=== PATIENT | female | born 1955 | race Caucasian/White ===

== ENCOUNTER 2019-10-07 14:50 | Outpatient (CLI) | payer BC, SELFPAY ==
[2019-10-07 15:05] LABS: Basophils Percent Auto 0.8 % (0.2-1.2); Eosinophils Absolute Auto 0.1 K/mm3 (0-0.3); Eosinophils Percent Auto 2.1 % (0-4.4); Hematocrit 41.5 % (37.0-47.0); Hemoglobin 13.5 g/dL (12.0-15.0); Immature Granulocyte Absolute 0.01 K/mm3 (0.00-0.031); Immature Granulocyte Percent A 0.3 % (0-0.5); Lymphocytes Absolute Auto 1.19 K/mm3 (0.9-3.2); Lymphocytes Percent Auto 31.4 % (18.3-44.2); Mean Corpuscular HGB Conc 32.5 g/dl (32-36); Mean Corpuscular Hemoglobin 32.1 pg (26-34); Mean Corpuscular Volume 98.6 fl (80-100); Mean Platelet Volume 8.5 fl (7.4-10.4); Monocytes Absolute Auto 0.5 K/mm3 (0.1-0.6); Monocytes Percent Auto 14.2 % (2.6-8.5); Neutrophils Absolute Auto 1.9 K/mm3 (1.3-6.7); Neutrophils Percent Auto 51.2 % (45.5-73.1); Platelet Count Result 175 k/mm3 (150-375); Red Blood Count 4.21 M/mm3 (4.2-5.4); Red Cell Distribution Width 11.5 % (11.5-14.5); White Blood Count 3.8 K/mm3 (4.5-10.0)
[2019-10-07 16:29] LABS: Add Urine Microscopic? NO; Appearance Urine Clear (Clear); Bilirubin Urine Negative (Negative); Blood Urine Negative (Negative); Color Urine Colorless (Yellow); Glucose Urine UA Negative (Negative); Ketones Urine Negative (Negative); Leukocyte Esterase Ur Negative LEU/UL (Negative); Nitrate Urine Negative (Negative); Protein Urine Negative (Negative); Specific Grav Ur 1.005 (1.001-1.035); Urobilinogen Urine Negative mg/dL (<2.0)
[2019-10-07 16:36] LABS: Alanine Aminotransferase 28 U/L (4-35); Albumin Level 4.3 g/dL (3.5-5.1); Alkaline Phosphatase 44 U/L (38-126); Aspartate Amino Transferase 32 U/L (14-36); Bilirubin,Total 0.2 mg/dL (0.2-1.3); Blood Urea Nitrogen 15 mg/dL (7-17); Calcium 9.9 mg/dL (8.4-10.2); Carbon Dioxide 33 mmol/L (22-30); Chloride 98 mmol/L (98-107); Estimated Glomerular Filt Rate > 60; Glucose 90 mg/dL (65-105); Potassium 3.9 mmol/L (3.4-5.0); Sodium 136 mmol/L (137-145)
[2019-10-07 16:51] LABS: Erythrocyte Sedimentation Rate 24 mm/hr (0-20)
== END 2019-10-07 14:51 | disposition home or self-care (01) ==
LOC: ANHLAB 14:51
PROVIDERS: PCP Family Medicine; Visit Provider Internal Medicine
DX: M19.90 Unspecified osteoarthritis, unspecified site (principal); R76.8 Other specified abnormal immunological findings in serum
CPT/HCPCS: 36415; 80053; 81003; 85025; 85652

== ENCOUNTER → 2020-02-21 13:17 | Outpatient (CLI) | payer BC, SELFPAY ==
--- NOTE | ~2020-02-21 | MM_ITS ---
EXAMINATION: MM screening [facility] w [facility] HISTORY: Screening mammogram TECHNIQUE: Craniocaudal and mediolateral oblique 3-D tomosynthesis images were obtained and synthetic 2-D images were generated. CAD analysis was submitted and interpreted. COMPARISON: No prior mammogram is available for comparison at this institution. BREAST PARENCHYMAL COMPOSITION: There are scattered areas of fibroglandular density. FINDINGS: There is no evidence of suspicious mass, calcification, or architectural distortion to sugg est malignancy in either breast. There has been no suspicious interval change. IMPRESSION: 1. No mammographic evidence of malignancy. 2. Recommend routine screening mammography in one year. BIRADS Category 1: Negative RECOMMENDATION: Routine mammographic screening Reviewed, dictated and finalized at location A.
== END ==
PROVIDERS: PCP Family Medicine; Visit Provider Family Medicine
DX: Z12.31 Encounter for screening mammogram for malignant neoplasm of breast (principal)
CPT/HCPCS: 77063; 77067

== ENCOUNTER → 2021-03-15 11:26 | Outpatient (CLI) | payer BC, SELFPAY ==
--- NOTE | ~2021-03-15 | US_ITS ---
EXAMINATION: US thyroid DATE: 03/15/2021 12:03 INDICATION: Thyroid nodule. TECHNIQUE: Multiple ultrasound images of the thyroid were obtained. COMPARISON: None. FINDINGS: The right thyroid lobe measures 3.6 x 1.7 x 1.3 cm. The left thyroid lobe measures 3.4 x 1.2 x 1.4 c m. In the right thyroid lobe, there is a 3 mm nodule. IMPRESSION: 1. Small thyroid nodule, likely not clinically significant. No follow-up is needed. Reviewed, dictated and finalized at location A. IMPRESSION: 1. Small thyroid nodule, likely not clinically significant. No follow-up is nee ded.
--- NOTE | ~2021-03-15 | MM_ITS ---
EXAMINATION: MM screening [facility] BI w [facility] HISTORY: Screening mammogram TECHNIQUE: Craniocaudal and mediolateral oblique 3-D tomosynthesis images were obtained and synthetic 2-D images were generated. CAD analysis was submitted and interpreted. COMPARISON: 02/21/2020, 12/24/2018, 12/04/2017 bilateral digital screening mammogram examinations BREAST PARENCHYMAL COMPOSITION: There are scattered areas of fibroglandular density. FINDINGS: There is no evidence of suspicious mass, calcification, or architectural distortion to sugg est malignancy in either breast. There has been no suspicious interval change. IMPRESSION: 1. No mammographic evidence of malignancy. 2. Recommend routine screening mammography in one year. BI-RADS Category 1: Negative Reviewed, dictated and finalized at location A.
== END ==
PROVIDERS: PCP Family Medicine; Visit Provider Nurse Practitioner Family
DX: Z12.31 Encounter for screening mammogram for malignant neoplasm of breast (principal); E04.1 Nontoxic single thyroid nodule
CPT/HCPCS: 76536; 77063; 77067

== ENCOUNTER → 2021-05-16 10:13 | Outpatient (CLI) | payer BC, SELFPAY ==
--- NOTE | ~2021-05-16 | DEXA_ITS ---
Bone Density Report Name: Maryellen Cruz Age: 66 Sex: Female Ethnicity: White Date of : 1955 Indication: osteopenia; monitoring treatment; parental hip fracture; height loss; prior fracture; postmenopausal Referring Provider: Shiloh Macedo Study: Bone densitometry was performed. Exam Date: May 16, 2021 Accession number: [id number] Bone Density: Region BMD T-score Z-score Classification AP Spine (L1-L4) 0.849 -1.8 -0.1 Osteopenia Femoral Neck (Left) 0.504 -3.1 -1.6 Osteoporosis Total Hip (Left) 0.759 -1.5 -0.3 Osteopenia Femoral Neck (Right) 0.566 -2.5 -1.1 Osteoporosis Total Hip (Right) 0.737 -1.7 -0.5 Osteopenia Total Hip Mean 0.748 -1.6 -0.4 Osteopenia World Health Organization criteria for BMD impression classify patients as: Normal (T-score at or above -1.0), Osteopenia (T-score between -1.0 and -2.5), or Osteoporosis (T-score at or below -2.5). 10-year Fracture Risk: FRAX not reported because: Some T-score for Spine Total or Hip Total or Femoral Neck at or below -2.5 Treated for osteoporosis Previous Exams: Region Exam Age BMD T-score BMD Change BMD Change Date g/cm2 vs Baseline vs Previous AP Spine(L1-L4) 05/16/2021 66 0.849 -1.8 0.063* 0.011 12/07/2018 63 0.838 -1.9 0.051* -0.040* 09/05/2016 61 0.877 -1.5 0.091* 0.033* 08/22/2014 59 0.844 -1.8 0.058* 0.058* 08/31/2011 56 0.786 -2.4 Total Hip(Left) 05/16/2021 66 0.759 -1.5 0.057* 0.007 12/07/2018 63 0.752 -1.6 0.051* 0.016 09/05/2016 61 0.736 -1.7 0.034* 0.000 08/22/2014 59 0.736 -1.7 0.034* 0.034* 08/31/2011 56 0.702 -2.0 Total Hip(Right) 05/16/2021 66 0.737 -1.7 0.077* 0.022 12/07/2018 63 0.715 -1.9 0.055* -0.014 09/05/2016 61 0.729 -1.7 0.069* 0.022 08/22/2014 59 0.707 -1.9 0.047* 0.047* 08/31/2011 56 0.660 -2.3 *Denotes significance at 95% confidence level, LSC for AP Spine = 0.022 g/cm2, LSC for Total Hip = 0.027 g/cm2 Clinical Information Provided by Patient: Has had a low trauma fracture Parent has had a hip fracture Is being treated for osteoporosis Has used the following medications: Boniva (i.e. ibandronate), Vitamin D, Calcium Patient maximum height was 61 Menopause Age: 52 Onset of menses at age 15 Number of children 2
== END ==
PROVIDERS: Visit Provider Nurse Practitioner Family
DX: M81.0 Age-related osteoporosis without current pathological fracture (principal); M85.88 Other specified disorders of bone density and structure, other site; M85.851 Other specified disorders of bone density and structure, right thigh; M85.852 Other specified disorders of bone density and structure, left thigh
CPT/HCPCS: 77080

== ENCOUNTER → 2022-04-18 12:02 | Outpatient (CLI) | payer BC, SELFPAY ==
--- NOTE | ~2022-04-18 | MM_ITS ---
EXAMINATION: MM screening [facility] BI w arya HISTORY: Screening TECHNIQUE: Craniocaudal and mediolateral oblique 3-D tomosynthesis images were obtained and synthetic 2-D images were generated. CAD analysis was submitted and interpreted. COMPARISON: Comparison to multiple prior studies sequentially, with oldest reviewed study dated 09/2018. BREAST PARENCHYMAL COMPOSITION: There are scattered areas of fibroglandular density. FINDINGS: There is no evidence of suspicious mass, calcification, or architectural distortion to sugg est malignancy in either breast. There has been no suspicious interval change. IMPRESSION: 1. No mammographic evidence of malignancy. 2. Recommend routine screening mammography in one year. BI-RADS Category 1: Negative Reviewed, dictated and finalized at location A.
== END ==
PROVIDERS: PCP Family Medicine; Visit Provider Nurse Practitioner Family
DX: Z12.31 Encounter for screening mammogram for malignant neoplasm of breast (principal)
CPT/HCPCS: 77063; 77067

== ENCOUNTER 2023-08-19 10:56 | Outpatient (CLI) | payer BC, SELFPAY ==
--- NOTE | ~2023-08-19 | MM_ITS ---
EXAMINATION: MM screening [facility] BI w arya HISTORY: Screening mammogram TECHNIQUE: Craniocaudal and mediolateral oblique 3-D tomosynthesis images were obtained and synthetic 2-D images were generated. CAD analysis was submitted and interpreted. COMPARISON: 04/18/2022, 03/15/2021, 02/23/2020 BREAST PARENCHYMAL COMPOSITION: There are scattered areas of fibroglandular density. FINDINGS: No suspicious mass, calcification, or architectural distortion are identified in either luiz ast to suggest malignancy. There has been no suspicious interval change. IMPRESSION: 1. No mammographic evidence of malignancy. 2. Recommend routine screening mammography in one year. BI-RADS Category 1: Negative Reviewed, dictated and finalized at location A. AND AND CONTROL OFFICER
--- NOTE | ~2023-08-19 | DEXA_ITS ---
Bone Density Report Name: FRANCIS ALFARO Age: 68 Sex: Female Ethnicity: White Date of : 1955 Indication: osteopenia; monitoring treatment; parental hip fracture; height loss; prior fracture; Referring Provider: Rere Guerrero Study: Bone densitometry was performed. Exam Date: August 19, 2023 Accession number: [id number] Bone Density: Region BMD T-score Z-score Classification AP Spine (L1-L4) 0.860 -1.7 0.2 Osteopenia Femoral Neck (Left) 0.544 -2.8 -1.2 Osteoporosis Total Hip (Left) 0.785 -1.3 0.0 Osteopenia Femoral Neck (Right) 0.560 -2.6 -1.0 Osteoporosis Total Hip (Right) 0.709 -1.9 -0.6 Osteopenia Total Hip Mean 0.747 -1.6 -0.3 Osteopenia World Health Organization criteria for BMD impression classify patients as: Normal (T-score at or above -1.0), Osteopenia (T-score between -1.0 and -2.5), or Osteoporosis (T-score at or below -2.5). 10-year Fracture Risk: FRAX not reported because: Some T-score for Spine Total or Hip Total or Femoral Neck at or below -2.5 Treated for osteoporosis Previous Exams: Region Exam Age BMD T-score BMD Change BMD Change Date g/cm2 vs Baseline vs Previous AP Spine(L1-L4) 08/19/2023 68 0.860 -1.7 0.074* 0.011 05/16/2021 66 0.849 -1.8 0.063* 0.011 12/07/2018 63 0.838 -1.9 0.051* -0.040* 09/05/2016 61 0.877 -1.5 0.091* 0.033* 08/22/2014 59 0.844 -1.8 0.058* 0.058* 08/31/2011 56 0.786 -2.4 Total Hip(Left) 08/19/2023 68 0.785 -1.3 0.083* 0.026 05/16/2021 66 0.759 -1.5 0.057* 0.007 12/07/2018 63 0.752 -1.6 0.051* 0.016 09/05/2016 61 0.736 -1.7 0.034* 0.000 08/22/2014 59 0.736 -1.7 0.034* 0.034* 08/31/2011 56 0.702 -2.0 Total Hip(Right) 08/19/2023 68 0.709 -1.9 0.049* -0.028* 05/16/2021 66 0.737 -1.7 0.077* 0.022 12/07/2018 63 0.715 -1.9 0.055* -0.014 09/05/2016 61 0.729 -1.7 0.069* 0.022 08/22/2014 59 0.707 -1.9 0.047* 0.047* 08/31/2011 56 0.660 -2.3 *Denotes significance at 95% confidence level, LSC for AP Spine = 0.022 g/cm2, LSC for Total Hip = 0.027 g/cm2 Clinical Information Provided by Patient: Has had a low trauma fracture Parent has had a hip fracture Is being treated for osteoporosis Has used the followi
== END 2023-08-19 10:57 ==
LOC: MICIMG 10:57
PROVIDERS: PCP Nurse Practitioner Family; Visit Provider Nurse Practitioner Family
DX: Z12.31 Encounter for screening mammogram for malignant neoplasm of breast (principal); M81.0 Age-related osteoporosis without current pathological fracture; M85.88 Other specified disorders of bone density and structure, other site; M85.852 Other specified disorders of bone density and structure, left thigh; M85.851 Other specified disorders of bone density and structure, right thigh
CPT/HCPCS: 77063; 77067; 77080

== ENCOUNTER 2024-04-18 11:48 | Emergency (ER) | payer OTHER, SELFPAY ==
--- NOTE | ~2024-04-18 | XR_ITS ---
EXAMINATION: XR foot LT min 3V DATE: 04/18/2024 12:24 INDICATION: Lateral left foot pain. TECHNIQUE: 4 views of left foot were obtained. COMPARISON: Left foot radiographs 05/27/2019 FINDINGS: Alignment is normal. There are healing transverse stress fractures of the diaphyses of the fourth and fifth metatarsals. There is mild osteoarthritis of some of the interphalangeal joints. IMPRESSION: 1. Healing transverse fractures fractures of the diaphyses of the fourth and fifth metatarsals. Reviewed, dictated and finalized at location A. IMPRESSION: 1. Healing transverse fractures fractures of the diaphyses of the fourth and fi fth metatarsals.
[2024-04-18 11:52] VITALS: BP 147/78; PULSE 82; RESP 18; TEMP 36.7; O2SAT 100
--- NOTE | 2024-04-18 12:18 | ED.GENADULT ---
HPI - General Adult General Chief complaint: Extremity Problem,Nontraumatic Stated complaint: foot injury Time Seen by Provider: 04/18/24 11:50 History of Present Illness HPI narrative: A 68-year-old female presenting to the emergency department for evaluation for left foot pain. Patient reports she was walking up the stairs when she placed her left foot on the stairs and felt a pull pop on the left lateral side of her foot. Patient denies any falls and denies any other injury. Patient was able to go up the stairs on her bottom. Patient did not strike her head had no loss of consciousness. Patient did have a similar foot fracture previously when she rolled her ankle. Patient states she does still have the walking boot from that injury. Related Data Home Medications Medication Instructions Recorded Confirmed cholecalciferol (vitamin D3) 50 50 mcg PO DAILY 03/05/21 03/13/23 mcg (2,000 unit) capsule magnesium L-lactate 84 mg 84 mg PO DAILY 03/05/21 03/13/23 tablet,extended release ascorbic acid (vitamin C) 500 mg mg PO 01/18/22 03/13/23 capsule calcium carbonate (Calcium 600) 600 mg PO DAILY 01/18/22 03/13/23 Allergies Allergy/AdvReac Type Severity Reaction Status Date / Time atorvastatin Allergy Unknown Muscle pain Verified 04/18/24 11:52 Penicillins Allergy Unknown Unknown Verified 04/18/24 11:52 Sulfa (Sulfonamide Allergy Unknown Unknown Verified 04/18/24 11:52 Antibiotics) sulfanilamide Allergy Unknown unknown Verified 04/18/24 11:52 sulfur dioxide Allergy Unknown hives Verified 04/18/24 11:52 crestor AdvReac nausea, Uncoded 04/18/24 11:52 upset stomach Review of Systems Review of Systems: All systems reviewed & are unremarkable except as noted in HPI and below PMFSH Past Medical History Medical History (Updated 04/19/24 @ 00:00 by Background Daemon) EDI positive BMI 20.0-20.9, adult BMI 21.0-21.9, adult Chronic leukopenia COVID-19 Elevated antinuclear antibody (EDI) level Elevated cholesterol Elevated fasting glucose Elevated LFTs Elevated TSH Encounter for gynecological examination (general) (routine) without abnormal findings (09/18/15) Generalized osteoarthritis of multiple sites Myalgia Polyarthralgia Primary osteoarthritis of both hands Primary osteoarthritis, left hand Routine medical exam Screening for breast cancer Screening for colon cancer Screening for diabetes mellitus Screening for lipid disorders Screening for osteoporosis Screening for thyroid disorder Vitamin D deficiency Surgical History Surgical History H/O section H/O shoulder surgery History of placement of ear tubes Hx of cholecystectomy Family History Family History Father Diabetes mellitus Hypertension Family history of diabetes mellitus in first degree relative Grandparent Diabetes mellitus Mother Family history of osteoporosis Family history of arthritis Sibling Diabetes mellitus Social History Social History Social History: Caffeine-none Smoking status: Never smoker Second hand tobacco smoke exposure: No Alcohol intake: never Substance use: never Substance use type: does not use Lack of Transportation: No Lack of Food: Never True Current Housing: I Have Housing Concerned About Future Housing: No Difficulty Paying Gas/Electric Bills: No Difficulty Paying for Meds: No Currently Unemployed: No Education: High School Diploma/GED Difficulty w/ Childcare or Family Care: No Living arrangements: with family Occupation/Education: retired 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 HEAD: nor
== END 2024-04-18 14:20 | disposition home or self-care (01) ==
PROVIDERS: Emergency Provider Emergency Medicine; PCP Family Medicine
DX: S99.922A Unspecified injury of left foot, initial encounter (principal); E55.9 Vitamin D deficiency, unspecified; M19.042 Primary osteoarthritis, left hand; M19.041 Primary osteoarthritis, right hand; Z86.16 Personal history of COVID-19; Z90.49 Acquired absence of other specified parts of digestive tract; Z79.899 Other long term (current) drug therapy; X50.9XXA Other and unspecified overexertion or strenuous movements or postures, initial encounter
CPT/HCPCS: 73630; 99283

== ENCOUNTER 2024-08-10 16:08 | Outpatient (CLI) | payer OTHER, SELFPAY ==
--- NOTE | ~2024-08-10 | XR_ITS ---
HISTORY: R60.0 - Localized edema . Left-sided facial pain and swelling COMPARISON: None TECHNIQUE: 3 views of the facial bones were performed. FINDINGS: No acute or subacute fracture. Paranasal sinuses are symmetric and well aerated. Cochlear implant transmitter detected Soft tissue asymmetry with left inferior lateral face and proximal neck are larger than the right, co nsistent with patient's history Normal mineralization. IMPRESSION: No osseous abnormality is appreciated. Further evaluation with a focused ultrasound is suggested, if the patient is clinically able. Reviewed, dictated and finalized at location A. R INSPECTOR IMPRESSION: No osseous abnormality is appreciated. Further evaluation with a focused ultrasound is suggested, if the patient is cl inically able.
== END 2024-08-10 16:09 | disposition home or self-care (01) ==
LOC: MICIMG 16:10
PROVIDERS: PCP Family Medicine; Visit Provider Nurse Practitioner Adult Health
DX: R51.9 Headache, unspecified (principal); R60.0 Localized edema
CPT/HCPCS: 70150

== ENCOUNTER 2024-10-20 14:00 | Outpatient (CLI) | payer OTHER, SELFPAY ==
--- NOTE | ~2024-10-20 | MM_ITS ---
EXAMINATION: MM screening [facility] BI w arya HISTORY: Screening TECHNIQUE: Craniocaudal and mediolateral oblique 3-D tomosynthesis images were obtained and synthetic 2-D images were generated. CAD analysis was submitted and interpreted. COMPARISON: Comparison to multiple prior studies sequentially, with oldest reviewed study dated 12/04. BREAST PARENCHYMAL COMPOSITION: Not dense: There are scattered areas of fibroglandular density. FINDINGS: There is no evidence of suspicious mass, calcification, or architectural distortion to sugg est malignancy in either breast. There has been no suspicious interval change. IMPRESSION: 1. No mammographic evidence of malignancy. 2. Recommend routine screening mammography in one year. BI-RADS Category 1: Negative Reviewed, dictated and finalized at location B.
== END 2024-10-20 14:01 | disposition home or self-care (01) ==
LOC: MICIMG 14:00
PROVIDERS: PCP Family Medicine; Visit Provider Family Medicine
DX: Z12.31 Encounter for screening mammogram for malignant neoplasm of breast (principal)
CPT/HCPCS: 77063; 77067

== ENCOUNTER 2024-11-16 08:54 | Outpatient (CLI) | payer OTHER, SELFPAY ==
--- NOTE | ~2024-11-16 | US_ITS ---
Abdominal Sonogram: Real-time sonographic imaging of the abdomen was performed. Clinical History: Abdominal pain Findings: The liver appears normal with no evidence of mass lesion or bile duct dilatation. Main por raheem vein demonstrates normal direction of flow. The spleen is normal in size without evidence of foca l lesion. The gallbladder is absent, compatible prior cholecystectomy. The common bile duct measures 3 mm. The visualized pancreas, aorta, and IVC are unremarkable. The right kidney measures 9.2 cm i n length and the left kidney measures 8.5 cm. There is no hydronephrosis or renal calculus. Impression: Status post cholecystectomy, otherwise unremarkable exam. Reviewed, dictated and finalized at location . Impression: Status post cholecystectomy, otherwise unremarkable exam.
== END 2024-11-16 08:55 | disposition home or self-care (01) ==
LOC: MICIMG 08:54
PROVIDERS: PCP Family Medicine; Visit Provider Nurse Practitioner Family
DX: R10.9 Unspecified abdominal pain (principal); Z90.49 Acquired absence of other specified parts of digestive tract
CPT/HCPCS: 76700

== ENCOUNTER 2025-02-28 16:15 | Emergency (ER) | payer OTHER, SELFPAY ==
--- OUTSIDE RECORDS SUMMARY | 2017-06-06 13:27 | XMS_ITS | Continuity of Care Document ---
Author Organization [facility] Address [address] [place] [address] Phone Care Team Providers Care Medical Delivery Driver Name Role Phone Jose Reinoso MD Unavailable [...] Providers Copied on Encounter [facility], [address] [facility], [place], [address], [place] tel:[phone] [facility] No Information 7 Kemar Garcia. [address] [place], [place], [id number] . tel:[phone] OFFICE CONSULTATION [facility], [address], [place], [address], [place] tel:[phone] [facility] Left shoulder pain (chief complaint) Pain in left shoulderBursi tis of left shoulderBursi tis of right shoulderBody mass index (BMI) 21.0-21.9, adult Apr- 8-201 7 Fabian German. [address], [place], [place], [address] . tel: [phone] Referring Provider: Baldev Loza, [address], [place], [address]. tel:[phone] Family History Family Member Type Diagnosis Age At Onset Father Problem (finding) Maternal history of ralph betes mellitus Payers Payer name Insurance type Covered constitution party ID Authoriza aj(s) Blue Access PPO E2 OT [id number] Social History Type Description Quantity Date Captured [...]
--- NOTE | ~2025-02-28 | CT_ITS ---
EXAMINATION: CT brain wo con DATE: 02/28/2025 17:59 INDICATION: New onset vertigo TECHNIQUE: Computed tomography (CT) of the head was performed without intravenous contrast. Sagittal and coronal reconstructions were performed. The mA was adjusted according to patient size. Iterative reconstruction technique was employed. The dose-length product was 605.33 mGy-cm. COMPARISON: None FINDINGS: Limited assessment of a large portion of the posterior fossa and portion of the left parietal occipital region due to prominent streak artifact related to and overlying likely bone conduction hearing implant. No acute intracranial hemorrhage, acute infarction or abnormal extra axial fluid collection. There is mild scattered white matter hypoattenuation consistent with chronic small vessel ischemic disease. Symmetric prominence of the sulci and subarachnoid spaces overlying the anterior convexities consistent with mild age-appropriate diffuse cerebral volume loss. Ventricles are normal and symmetric. No mass/mass effect. Likely benign calcified posterior scalp nodule. Postoperative change of prior l eft mastectomy. The orbits, paranasal sinuses and right mastoid air cells are normal. IMPRESSION: 1. Normal aging brain. No acute intracranial process. 2. Postoperative change of prior left mastectomy with likely bone conduction hearing implant overlying the left posterior lateral skull base and right axillary region. Reviewed, dictated and finalized at location A. IMPRESSION: 1. Normal aging brain. No acute intracranial process. 2. Postoperative change of prior left mastectomy with likely bone conduction he aring implant overlying the left posterior lateral skull base and right axillar y region.
[2025-02-28 16:16] VITALS: BP 149/52; PULSE 67; RESP 16; TEMP 36.4; O2SAT 99
[2025-02-28 16:50] VITALS: BP 147/70; BP 152/77; PULSE 76; PULSE 80
[2025-02-28 16:51] VITALS: BP 153/74; PULSE 78
--- NOTE | 2025-02-28 16:54 | ECG_ITS ---
Test Date: 2025-02-28 17:14:24 Measurements Intervals Conifer Rate: 65 P: 55 WV: 178 QRS: -14 QRSD: 90 T: 132 QT: 307 QTc: 319 Interpretive Statements SINUS RHYTHM LOW QRS VOLTAGE IN PRECORDIAL LEADS DELAYED PRECORDIAL R/S TRANSITION BORDERLINE ST-T WAVE ABNORMALITY- ANTEROLAT/HIGH LAT LEADS BASELINE ARTIFACT- I, II, AVR, AVL, AVF BORDERLINE ECG No previous ECG available for comparison Electronically Signed On 02-28-2025 19:53:54 CDT by Gonzalo Dennis D.O.
[2025-02-28] MEDS: MECLIZINE HCL 25 MG TABLET PO (17:11)
[2025-02-28 17:12] LABS: Hematocrit 38.6 % (37.0-47.0); Hemoglobin 12.6 g/dL (12.0-15.0); Immature Granulocyte Percent A 0.3 % (0-0.5); Lymphocytes Absolute Auto 1.19 K/mm3 (0.9-3.2); Mean Corpuscular HGB Conc 32.6 g/dl (32-36); Mean Corpuscular Hemoglobin 31.7 pg (26-34); Mean Corpuscular Volume 97.2 fl (80-100); Nucleated Red Blood Cells Absolute Auto 0.000 K/mm3 (0.0-0.012); Nucleated Red Blood Cells Perc 0.0 % (0.0-0.2); Platelet Count Result 185 k/mm3 (150-375); Red Blood Count 3.97 M/mm3 (4.2-5.4); White Blood Count 9.8 K/mm3 (4.5-10.0)
[2025-02-28] MEDS: ONDANSETRON INJ 4 MG/2 ML VIAL IV PUSH ×2 (17:12→18:02)
--- OUTSIDE RECORDS SUMMARY | 2025-02-28 17:21 | XMS_ITS | Clinical Summary ---
Author Organization [facility] Address [address] [place] [address] Care Team Providers Care Kitchen Supervisor Name Role Phone Baldev Gonzalez MD Primary Care Provider Allergies Active Allergy Reactions Criticality Noted Date Comments Penicillins Hives High 02/23/2018 Sulfa (Sulfonamide Antibiotics) Hives High 02/05 Medications sertraline (ZOLOFT) 50 mg tablet Take 50 mg by mouth daily. Active ibandronate (BONIVA) 150 mg tablet Take 150 mg by mouth every 30 days. Active calcium-cholecal ciferol (OS-ANEUDY 500+D) 500 mg(1,250mg) -200 unit tablet Active glucosamine/za dr julienne go (GLUCOSAMINE-CHO NDROITIN) 167-133 mg Capsule Active Ascorbic Acid 500 mg Capsule, Sustained Release Active Active Problems Problem Noted Date Diagnosed Date Leukopenia 02/23/2018 Family History Medical History Relation Name Comments Diabetes Father Diabetes Sister Relation Name Status Comments Brother Alive Father Mother Sister Alive Social History Tobacco Use Types Packs/Day Years Used Date Smoking Tobacco: Never Smokeless Tobacco: Never Alcohol Use Standard Drinks/Week Comments No 0 (1 standard drink = 0.6 oz pur e alcohol) Comments No Sex and Gender Information Value Date Recorded Sex Assigned at Not on file Legal Sex Female 5:19 PM CDT Gender Identity Not on file Sexual Orientation Not on file Last Filed Vital Signs Vital Sign Reading Time Taken Comments Blood Pressure 154/83 09/03/2018 3:00 PM FRUIT THINNER Pulse 70 09/03/2018 3:00 PM FRUIT THINNER Temperature 36.7 C (98 F) 09/03/2018 3:00 PM FRUIT THINNER Respiratory Rate 18 09/03/2018 3:00 PM FRUIT THINNER Oxygen Saturation 94% 09/03/2018 3:00 PM FRUIT THINNER Inhaled Oxygen Concentration - - Weight 51.8 kg (114 lb 4.8 oz) 09/03/2018 3:00 P M FRUIT THINNER Height 149.9 cm (4' 11) 09/03/2018 3:00 PM FRUIT THINNER Body Mass Index 23.09 09/03/2018 3:00 PM FRUIT THINNER Plan of Treatment Health Maintenance Due Date Last Done Comments DTAP/TDAP/TD VACCINES (1 - Tdap) 1976 BREAST CANCER SCREENING 1997 COLORECTAL SCREENING 2002 Colorectal Cancer Screening 2002 FIT-DNA Q 3 years 2002 FIT/FOBT Q 1 year 2002 Flex Sig/CT Colonography Q 5 years 2002 PNEUMOCOCCAL VACCINE 50+ YEARS (1 of 1 - PCV) 05/09/20 07 ZOSTER VACCINE (1 of 2) 2007 OSTEOPOROSIS SCREENING 2022 INFLUENZA VACCINE (#1) 2025 RSV VACCINE (60+ or ) (1 - 1-dose 75+ series) 2032 Insurance [employer] BLUE Play[employer] Sessions/TRUE BLUE PPO [employer] BLUE [employer]/TRUE BLUE PPO Care Teams Kitchen Supervisor Relationship Specialty Start Date End Date Baldev Gonzalez MD [address] [place] [address] PCP - General Family Practice 02/23/18
--- OUTSIDE RECORDS SUMMARY | 2025-02-28 17:21 | XMS_ITS | Clinical Summary ---
Author Organization [facility] Address [address] [facility], [address] [address] Phone Care Team Providers Care Mill Operator Helper Name Role Phone Baldev Gonzalez MD Primary Care Provider [phone] Allergies Active Allergy Reactions Criticality Noted Date Comments Penicillins Hives,Itching Medium 11/03/2018 Sulfa Antibiotics Hives Medium 11/03/2018 Medications Ibandronate Sodium (BONIVA PO) Take 0.5 Tabs by mouth every 30 days. Active sertraline (ZOLOFT) 50 MG Tablet Take 25 mg by mouth daily. Active Ascorbic Acid (VITAMIN C PO) Take 1 Tab by mouth daily. Active Multiple Vitamin (MULTI-VITAMIN PO) Take 1 Tab by mouth daily. Active Calcium Carbonate (CALCIUM 600 PO) Take 1 Tab by mouth daily. Active glucosamine-za droitin 500-400 MG Capsule Take 1 Cap by mouth daily. Active Family History Medical History Relation Name Comments Diabetes Father Renal Failure Father Osteoporosis Mother Relation Name Status Comments Father Mother Social History Tobacco Use Types Packs/Day Years Used Date Smoking Tobacco: Never Smokeless Tobacco: Never Alcohol Use Standard Drinks/Week Comments Not Currently 0 (1 standard drink = 0.6 oz pur e alcohol) AUDIT-C Answer Date Recorded Frequency of Alcohol Consumption Never 11/03/2018 Average Number of Drinks Not on file 019 Frequency of Binge Drinking Not on file 10/07 Comments Unknown Sex and Gender Information Value Date Recorded Sex Assigned at Not on file Legal Sex Female 11:06 AM CDT Gender Identity Not on file Sexual Orientation Not on file Occupation Industry Job Start Date Job End Date [employer] Not on file Not on file Not on file Last Filed Vital Signs Vital Sign Reading Time Taken Comments Blood Pressure 116/73 11/27/2018 9:58 AM CDT Pulse 78 11/27/2018 9:58 AM CDT Temperature 36 C (96.8 F) 11/27/2018 9:58 AM CDT Respiratory Rate 13 11/27/2018 9:58 AM CDT Oxygen Saturation 100% 11/27/2018 9:58 AM CDT Inhaled Oxygen Concentration - - Weight 49 kg (108 lb) 11/03/2018 9:00 AM CDT Height 149.9 cm (4' 11) 11/03/2018 9:00 AM CDT Body Mass Index 21.81 11/03/2018 9:00 AM CDT Plan of Treatment Health Maintenance Due Date Last Done Comments Hepatitis C Virus (HCV) Screening 1955 TdaP Immunization 1957 Cologuard 2002 Immunochemical Fecal Occult Blood 2002 Pneumococcal Immunization (5 0+ years) (1 of 1 - PCV) 2007 Zoster Immunization (1 of 2) 2007 SARS-COV-2 Immunization ( - season) 2024 Influenza Immunization (#1) 2025 Colonoscopy 11/27/2028 11/27/2018 Colorectal Cancer Screening 11/27/2028 Respiratory Syncytial Virus (RSV) Immunization (Adult) (1 - 1-dose 75+ series) 2032 Hepatitis B Immunization Aged Out No longer eligible based on patient's age to complete this topic Human Papillomavirus (HPV) Immunization Aged Out No longer eligible b ased on patient's age to complete this topic Meningococcal Immunization (ACWY) Aged Out No longer eligible based on patient's age to complete this topic Rotavirus Immunization Aged Out No lo nger eligible based on patient's age to complete this topic Insurance Care Teams Mill Operator Helper Relationship Specialty Start Date End Date Baldev Gonzalez MD [address] [address] PCP - General Family Medicine 10/23/18
--- OUTSIDE RECORDS SUMMARY | 2025-02-28 17:21 | XMS_ITS | Clinical Summary ---
Author Organization [facility] Address [address] [place] [address] Care Team Providers Care Face And Fill Packer Name Role Phone Rere Guerrero NP Primary Care Provider [phone] Omar Davey MD Unavailable Allergies Active Allergy Reactions Criticality Noted Date Comments Cephalexin Stomach upset Low 05/23/2022 Penicillins Hives,Itching High 02/23/2018 Sulfa (Sulfonamide Antibiotics) Hives Medium 10/07 Medications sertraline (ZOLOFT) 25 mg tabletIndications: Anxiety with Depression Take 1 tablet (25 mg total) by mouth daily before breakfast Active levothyroxine (SYNTHROID) 50 mcg tabletIndications: hypothyroidism Take 1 tablet (50 mcg total) by mouth sales administration manager before breakfast 2 Active ibandronate (BONIVA) 150 mg tabletIndications: Post-Menopausal Osteoporosis Take 1 tablet (150 mg total) by mouth every 30 (thirty) days 1st of the month Active ascorbic acid, vitamin C, (VITAMIN C) 500 mg capsule, extended release CR capsuleIndications :Vitamin C Deficiency,supplem ent Take 1 capsule (500 mg total) by mouth daily before breakfast Active multivitamin tabletIndications: Vitamin Deficiency Prevention Take 1 tablet by mouth daily before breakfast Active magnesium gluconate 200 mg tabletIndications: supplement Take 1 tablet (200 mg total) by mouth daily before breakfast Active calcium carbonate/vitamin D3 (CALCIUM 600 + D,3, ORAL)Indications:s upplement Take 1 tablet by mouth daily before breakfast Active cholecalciferol (VITAMIN D-3) 4,000 unit capsuleIndications :Prevention of Vitamin D Deficiency Take 0.5 capsules (2,000 Units total) by mouth daily before breakfast Active UNABLE TO FINDIndications:di etary supplement Take 1 each by mouth daily before breakfast Med Name: drenamin Active cyanocobalamin (Vitamin B-12) 1,000 mcg tabletIndications: Prevention of Vitamin B12 Deficiency Take 1 tablet (1,000 mcg total) by mouth daily before breakfast Active acetaminophen (TYLENOL) 325 mg tabletIndications: Pain Take 2 tablets (650 mg total) by mouth every 6 (six) hours as needed for pain Active ezetimibe (ZETIA) 10 mg tabletIndications: hypercholesterolem ia Take 1 tablet (10 mg total) by mouth nightly Active HYDROcodone-acetam inophen (NORCO) 5-325 mg per tabletIndications: Pain Take 1 tablet by mouth every 6 (six) hours as needed for pain (breakthrough pain) 15 tablet 3 Active ondansetron ODT (ZOFRAN-ODT) 4 mg disintegrating tablet Take 1 tablet (4 mg total) by mouth every 8 (eight) hours as needed for nausea or vomiting 10 tablet 4 Active Active Problems Problem Noted Date Diagnosed Date Mixed conductive and sensorineural hearing loss of left ear 08/27/2022 Overview (08/27/2022): Added automatically from request for surgery [id number] Cholesteatoma of left ear 04/02/2022 Cholesteatoma of ear, left 04/02/2022 Conductive hearing loss, uni lateral, left ear, with unrestricted hearing on the contralateral side 04/02/2022 Left chronic otitis media 04/02/2022 Encounters Date Type Department Care Team Description 12/29/2024 Telephone [facility] Medicine Otolaryngology [address] [place] [address] Lily Saldaña MS from Last 3 Months Surgical History Surgery Date Site/Laterality Comments TYMPANOSTOMY TUBE PLACEMENT 07/07/2011 - 07/06/2012 Left CHOLECYSTECTOMY 07/07/1990 - 07/06/1991 COLONOSCOPY 07/07/2018 - 07/06/2019 SECTION 07/07/1988 - 07/06/1989 SECTION 07/07/1984 - 07/06/1985 TYMPANOMASTOIDECTOMY W/ OSSICULOPLASTY 05/20/2022 Le ft Medical History Medical History Date Comments Arthritis Osteoporosis Thyroid disease Myalgia Family History Medical History Relation Name Comments Diabetes Father Osteoporosis Mother Anesthesia problems Neg Hx Relation Name Status Comments Father Mother Social History Tobacco Use Types Packs/Day Years Used Date Smoking Tobacco: Never Smokeless Tobacco: Never AUDIT-C Answer Date Recorded Q1: How often do you have a drink containing alcohol? Never 06/09/2023 Q2: How many drinks containi ng alcohol do you have on a typical day when you are drinking? Patient does not drink Q3: How often do you have si x or more drinks on one occasion? Never 06/09/2023 Personal Safety Answer Date Recorded Have you ever been in or are you currently in a harmful physical or emotional relationship or is someone making you feel afraid or unsafe? Denies 06/09/2023 Comments No Sex and Gender Information Value Date Recorded Sex Assigned at Not on file Legal Sex Female 2:25 PM CDT Gender Identity Not on file Sexual Orientation Not on file Obstetrics History Last Filed Vital Signs Vital Sign Reading Time Taken Comments Blood Pressure 138/67 06/09/2023 1:45 PM SERGING MACHINE OPERATOR Pulse 80 06/09/2023 1:50 PM SERGING MACHINE OPERATOR Temperature 36.7 C (98.1 F) 06/09/2023 1:12 PM SERGING MACHINE OPERATOR Respiratory Rate 16 06/09/2023 1:50 PM SERGING MACHINE OPERATOR Oxygen Saturation 94% 06/09/2023 1:50 PM SERGING MACHINE OPERATOR Inhaled Oxygen Concentration - - Weight 49 kg (108 lb) 06/09/2023 10:05 AM SERGING MACHINE OPERATOR Height 152.4 cm (5') 06/09/2023 10:05 AM SERGING MACHINE OPERATOR Body Mass Index 21.09 06/09/2023 10:05 AM SERGING MACHINE OPERATOR Plan of Treatment Health Maintenance Due Date Last Done Comments Breast Cancer Screening-Mammogram 1957 Colon Cancer Screening-Colonoscopy 1957 Depression Screening 1957 Hepatitis C Screening 1957 Osteoporosis Screening-Bone Density Scan 1957 DTaP/Tdap/Td Vaccine (1 - Tdap) 1968 Hepatitis B Screening 1975 Pneumococcal vaccine 65+ (1 of 1 - PCV) 2007 Zoster Vaccine (1 of 2) 2007 Well Visit 65+ 2022 Covid-19 Vaccine ( season) 2024, 03/30/2021 Fall Risk Assessment 06/09/2024 06/09/2023 Influenza Vaccine (#1) 2025 Medical Devices Implanted Type Area Sizing Machine Tender Device Identifier Shelf Expiration Date Model / Serial / Lot [employer] Porp [place] Prosthesis Ossicular 655 - [id number] Implanted:Qty: 1 on 11/18/2022 by Wesley Jason MD at [facility] Left: Ear [employer] [id number] 08/07/2027 655 / / [id number] [employer] Baha 4mm Abutment Implant Cochlear Titanium [id number] - [id number] Implanted:Qty: 1 on 06/09/2023 by Wesley Jason MD at [facility] Left: Ear [employer] 10/09/2027 [id number] / / [id number] [employer] Implant Cochlear [id number] - [id number] - [id number] Implanted:Qty: 1 on 06/09/2023 by Wesley Jason MD at [facility] Left: Ear [employer] 03/23/2025 [id number] / [id number] / Insurance [id number] [place] [address] [facility] Care Teams Face And Fill Packer Relationship Specialty Start Date End Date Rere Guerrero NP PCP - General Nurse Practitioner 03/07/22 Omar Davey MD Referring Physician Otolaryngology 05/27/22
[2025-02-28 17:22] LABS: Alanine Aminotransferase 24 U/L (6-35); Albumin Level 4.4 g/dL (3.5-5.1); Alkaline Phosphatase 42 U/L (38-126); Anion Gap 10 mmol/L (4-12); Aspartate Amino Transferase 37 U/L (14-36); Bilirubin,Total 0.3 mg/dL (0.2-1.3); Blood Urea Nitrogen 17 mg/dL (7-17); Calcium 9.2 mg/dL (8.4-10.2); Carbon Dioxide 25 mmol/L (22-30); Chloride 97 mmol/L (98-107); Estimated CRCL calculation 46 ml/min; Estimated Glomerular Filt Rate > 60; Glucose 144 mg/dL (65-110); Potassium 3.6 mmol/L (3.4-5.0); Sodium 132 mmol/L (137-145); Total Protein 7.8 g/dL (6.3-8.2)
--- NOTE | 2025-02-28 17:31 | ED.DIZZY ---
HPI - Dizziness General Chief Complaint: Dizziness <Danielle Campa MD - Last Filed: 02/28/25 18:01> Stated Complaint: dizzy <Danielle Campa MD - Last Filed: 02/28/25 18:01> Time Seen by Provider: 02/28/25 16:51 <Danielle Campa MD - Last Filed: 02/28/25 18:01> Source: patient <Elise Bal PA-C - Last Filed: 02/28/25 20:58> Mode of arrival: ambulatory <Elise Bal PA-C - Last Filed: 02/28/25 20:58> Limitations: no limitations <Elise Bal PA-C - Last Filed: 02/28/25 20:58> History of Present Illness HPI Narrative: Patient presenting here with dizziness, had similar symptoms when she got her cochlear implant, feels like the room is spinning when she tries to stand. No recent trauma, she is feeling quite nauseous from this, however when she sits her still without moving her head she has no symptoms. She has no focal numbness or weakness or difficulty with speech or anything else. <Danielle Campa MD - Last Filed: 02/28/25 18:01> Related Data Home Medications: Home Medications ?Medication ?Instructions ?Recorded ?Confirmed ?Last Taken ?Type cholecalciferol (vitamin D3) 50 50 mcg PO DAILY 03/05/21 12/09/24 Unknown History mcg (2,000 unit) capsule magnesium L-lactate 84 mg 84 mg PO DAILY 03/05/21 12/09/24 Unknown History tablet,extended release ascorbic acid (vitamin C) 500 mg mg PO 01/18/22 12/09/24 Unknown History capsule calcium carbonate (Calcium 600) 600 mg PO DAILY 01/18/22 12/09/24 Unknown History <Danielle Campa MD - Last Filed: 02/28/25 18:01> Allergies/Adverse Reactions: Allergies Allergy/AdvReac Type Severity Reaction Status Date / Time atorvastatin Allergy Unknown Muscle pain Verified 12/09/24 10:20 Penicillins Allergy Unknown Unknown Verified 12/09/24 10:20 Sulfa (Sulfonamide Allergy Unknown Unknown Verified 12/09/24 10:20 Antibiotics) sulfanilamide Allergy Unknown unknown Verified 12/09/24 10:20 sulfur dioxide Allergy Unknown hives Verified 12/09/24 10:20 crestor AdvReac nausea, Uncoded 12/09/24 10:20 upset stomach <Danielle Campa MD - Last Filed: 02/28/25 18:01> Review of Systems Review of Systems: All systems reviewed & are unremarkable except as noted in HPI and below <Danielle Campa MD - Last Filed: 02/28/25 18:01> [facility] Past Medical History Medical History: Medical History (Updated 02/28/25 @ 18:01 by Danielle Campa MD) Chronic diarrhea Nausea and vomiting Screening for thyroid disorder Elevated TSH Localized myalgia of masseter Left-sided face pain Edema of face BMI 21.0-21.9, adult COVID-19 BMI 20.0-20.9, adult Elevated LFTs Elevated TSH Elevated antinuclear antibody (EDI) level Elevated cholesterol Elevated fasting glucose Encounter for gynecological examination (general) (routine) without abnormal findings (09/18/15) Myalgia Polyarthralgia Primary osteoarthritis of both hands Primary osteoarthritis, left hand Routine medical exam Screening for breast cancer Screening for colon cancer Screening for diabetes mellitus Screening for lipid disorders Screening for osteoporosis Screening for thyroid disorder Vitamin D deficiency Generalized osteoarthritis of multiple sites Chronic leukopenia EDI positive <Danielle Campa MD - Last Filed: 02/28/25 18:01> Surgical History Surgical History: Surgical History (Updated 12/09/24 @ 11:07 by HANK Bertrand) History of placement of ear tubes H/O shoulder surgery H/O section Hx of cholecystectomy <Danielle Campa MD - Last Filed: 02/28/25 18:01> Family History Family History: Family History Father Diabetes mellitus Hypertension Family history of diabetes mellitus in first degree relative Grandparent Diabetes mellitus Mother Family history of osteoporosis Family history of arthritis Sibling Diabetes mellitus <Danielle Campa MD - Last Filed: 02/28/25 18:01> Social History Social History: Social History Social History: Caffeine-none Smoking status: Never smoker Second hand tobacco smoke exposure: No Alcohol intake: never Substance use: never Substance use type: does not use Do You Feel Safe in your Home?: Yes Lack of Transportation: No Lack of Food: Never True Current Housing: I Have Housing Concerned About Future Housing: No Difficulty Paying Gas/Electric Bills: No Difficulty Paying for Meds: No Currently Unemployed: No Education: High School Diploma/GED Difficulty w/ Childcare or Family Care: No Living arrangements: with family Occupation/Education: retired 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 EYES: EOMI, conjunctiva normal ENT: Slight bulging right TM LUNGS: Nonlabored breathing. HEART: [Regular rate and rhythm] ABD: [Soft], [nontender to palpation] EXT: Normal range of motion SKIN: [No rashes or lesions.] NEURO: [Alert and oriented x 3. No gross focal sensory or strength deficits.] Clear speech. Symmetric face. Normal voice. PSYCH: Normal affect <Danielle Campa MD - Last Filed: 02/28/25 18:01> EXAMINATION OF ORGAN SYSTEMS/BODY AREAS: Constitutional: Vital signs per nursing GENERAL: Appears uncomfortable, holding emesis bag, almost threw up when she was sat up HEAD: Normal with no signs of head trauma. EYES: EOMI, conjunctiva normal ENT: Slight bulging right TM, no erythema LUNGS: Nonlabored breathing. HEART: [Regular rate and rhythm] ABD: [Soft], [nontender to palpation] EXT: Normal range of motion SKIN: [No rashes or lesions.] NEURO: [Alert and oriented x 3. No gross focal sensory or strength deficits.] Clear speech. Symmetric face. Normal voice. PSYCH: Normal affect <Elise Bal PA-C - Last Filed: 02/28/25 20:58> Course Course Emergency Course: On re-evaluation patient is feeling much better. Ambulatory with a steady gait. Does not want any further workup at this time <Elise Bal PA-C - Last Filed: 02/28/25 20:58> Vital Signs Vital signs: Vital Signs Temperature 97.5 F L 02/28/25 16:16 Pulse Rate 67 02/28/25 16:16 Respiratory Rate 16 02/28/25 16:16 Blood Pressure 149/52 H 02/28/25 16:16 Pulse Oximetry 99 02/28/25 16:16 Oxygen Delivery Room Air 02/28/25 16:16 Temperature 97.5 F L 02/28/25 16:16 Pulse Rate 78 02/28/25 16:51 Respiratory Rate 16 02/28/25 16:16 Blood Pressure 153/74 H 02/28/25 16:51 Pulse Oximetry 99 02/28/25 16:16 Oxygen Delivery Room Air 02/28/25 16:16 <Danielle Campa MD - Last Filed: 02/28/25 18:01> Vital Signs Temperature 97.5 F L 02/28/25 16:16 Pulse Rate 67 02/28/25 16:16 Respiratory Rate 16 02/28/25 16:16 Blood Pressure 149/52 H 02/28/25 16:16 Pulse Oximetry 99 02/28/25 16:16 Oxygen Delivery Room Air 02/28/25 16:16 Temperature 97.5 F L 02/28/25 16:16 Pulse Rate 78 02/28/25 16:51 Respiratory Rate 16 02/28/25 16:16 Blood Pressure 153/74 H 02/28/25 16:51 Pulse Oximetry 99 02/28/25 16:16 Oxygen Delivery Room Air 02/28/25 16:16 <Elise Bal PA-C - Last Filed: 02/28/25 20:58> MDM - Dizziness MDM Narrative Medical decision making narrative: Patient presenting with new onset vertigo, last time she had this issue with when she had a cochlear implant placed. She does have a slightly bulging right TM however she has no right ear pain, given this I will obtain imaging to rule out posterior stroke. She is barely able to tolerate the CT and became quite dizzy when she was laid down flat and nauseous, meclizine did not help, I did therefore orders and Valium. Case discussed with neurologist with anticipation for likely admission if her symptoms do not improve. Discussed with patient and family at bedside. Signed out <Danielle Campa MD - Last Filed: 02/28/25 18:01> Patient presenting with new onset vertigo, last time she had this issue with when she had a cochlear implant placed. She does have a slightly bulging right TM without erythema, however she has no right ear pain, given this I will obtain imaging to rule out posterior stroke. She is barely able to tolerate the CT and became quite dizzy when she was laid down flat and nauseous, meclizine did not help, I did therefore orders and Valium. Case discussed with neurologist with anticipation for likely admission if her symptoms do not improve. Discussed with patient and family at bedside. Signed out at shift change On re-evaluation patient is feeling much better. Ambulatory with a steady gait. She was awaiting CTA. Does not want any further workup at this time. Instructed close follow-up with PCP. She was given warnings to return to the ER <Elise Bal PA-C - Last Filed: 02/28/25 20:58> Differential Diagnosis Differential diagnosis: Likely adverse reaction to drug, benign paroxysmal positional vertigo, orthostatic hypotension and cerebrovascular accident <Elise Bal PA-C - Last Filed: 02/28/25 20:58> Lab Data Attestation: I reviewed the patient's lab results. <Elise Bal PA-C - Last Filed: 02/28/25 20:58> Result diagrams: 02/28/25 17:07 02/28/25 17:07 <Danielle Campa MD - Last Filed: 02/28/25 18:01> Labs: Lab Results 02/28/25 Range/Units 17:07 WBC 9.8 (4.5-10.0) K/mm3 RBC 3.97 L (4.2-5.4) M/mm3 Hgb 12.6 (12.0-15.0) g/dL Hct 38.6 (37.0-47.0) % MCV 97.2 (80-100) fl MCH 31.7 (26-34) pg MCHC 32.6 (32-36) g/dl RDW 11.4 L (11.5-14.5) % Plt Count 185 (150-375) k/mm3 MPV 8.3 (7.4-10.4) fl Immature Gran % (Auto) 0.3 (0-0.5) % Neut % (Auto) 78.9 H (45.5-73.1) % Lymph % (Auto) 12.2 L (18.3-44.2) % [place] % (Auto) 7.4 (2.6-8.5) % Eos % (Auto) 0.7 (0-4.4) % Baso % (Auto) 0.5 (0.2-1.2) % Lymph # (Auto) 1.19 (0.9-3.2) K/mm3 [place] # (Auto) 0.7 H (0.1-0.6) K/mm3 Eos # (Auto) 0.1 (0-0.3) K/mm3 Baso # (Auto) 0.1 (0.0-0.1) K/mm3 Abs Immat Gran (auto) 0.03 (0.00-0.031) K/mm3 Absolute Neuts (auto) 7.7 H (1.3-6.7) K/mm3 Absolute Nucleated RBC 0.000 (0.0-0.012) K/mm3 Nucleated RBC % 0.0 (0.0-0.2) % Sodium 132 L (137-145) mmol/L Potassium 3.6 (3.4-5.0) mmol/L Chloride 97 L (98-107) mmol/L Carbon Dioxide 25 (22-30) mmol/L Anion Gap 10 (4-12) mmol/L BUN 17 (7-17) mg/dL Creatinine 0.77 (0.7-1.0) mg/dL Estim Creat Clear Calc 46 ml/min Estimated GFR > 60 (59 - ) Glucose 144 H (65-110) mg/dL Calcium 9.2 (8.4-10.2) mg/dL Total Bilirubin 0.3 (0.2-1.3) mg/dL AST 37 H (14-36) U/L ALT 24 (6-35) U/L Alkaline Phosphatase 42 (38-126) U/L Total Protein 7.8 (6.3-8.2) g/dL Albumin 4.4 (3.5-5.1) g/dL <Danielle Campa MD - Last Filed: 02/28/25 18:01> Lab Results 02/28/25 Range/Units 17:07 WBC 9.8 (4.5-10.0) K/mm3 RBC 3.97 L (4.2-5.4) M/mm3 Hgb 12.6 (12.0-15.0) g/dL Hct 38.6 (37.0-47.0) % MCV 97.2 (80-100) fl MCH 31.7 (26-34) pg MCHC 32.6 (32-36) g/dl RDW 11.4 L (11.5-14.5) % Plt Count 185 (150-375) k/mm3 MPV 8.3 (7.4-10.4) fl Immature Gran % (Auto) 0.3 (0-0.5) % Neut % (Auto) 78.9 H (45.5-73.1) % Lymph % (Auto) 12.2 L (18.3-44.2) % [place] % (Auto) 7.4 (2.6-8.5) % Eos % (Auto) 0.7 (0-4.4) % Baso % (Auto) 0.5 (0.2-1.2) % Lymph # (Auto) 1.19 (0.9-3.2) K/mm3 [place] # (Auto) 0.7 H (0.1-0.6) K/mm3 Eos # (Auto) 0.1 (0-0.3) K/mm3 Baso # (Auto) 0.1 (0.0-0.1) K/mm3 Abs Immat Gran (auto) 0.03 (0.00-0.031) K/mm3 Absolute Neuts (auto) 7.7 H (1.3-6.7) K/mm3 Absolute Nucleated RBC 0.000 (0.0-0.012) K/mm3 Nucleated RBC % 0.0 (0.0-0.2) % Sodium 132 L (137-145) mmol/L Potassium 3.6 (3.4-5.0) mmol/L Chloride 97 L (98-107) mmol/L Carbon Dioxide 25 (22-30) mmol/L Anion Gap 10 (4-12) mmol/L BUN 17 (7-17) mg/dL Creatinine 0.77 (0.7-1.0) mg/dL Estim Creat Clear Calc 46 ml/min Estimated GFR > 60 (59 - ) Glucose 144 H (65-110) mg/dL Calcium 9.2 (8.4-10.2) mg/dL Total Bilirubin 0.3 (0.2-1.3) mg/dL AST 37 H (14-36) U/L ALT 24 (6-35) U/L Alkaline Phosphatase 42 (38-126) U/L Total Protein 7.8 (6.3-8.2) g/dL Albumin 4.4 (3.5-5.1) g/dL <Elise Bal PA-C - Last Filed: 02/28/25 20:58> Imaging Data Radiologist's impression: ITS Impressions Head CT 02/28/25 18:34 IMPRESSION: 1. Normal aging brain. No acute intracranial process. 2. Postoperative change of prior left mastectomy with likely bone conduction hearing implant overlying the left posterior lateral skull base and right axillary region. <Elise Bal PA-C - Last Filed: 02/28/25 20:58> ECG Data EKG #1: ECG completion date: 02/28/25 <Elise Bal PA-C - Last Filed: 02/28/25 20:58> EKG Interpretation: normal rate, sinus rhythm, no ST changes and normal QT <Elise Bal PA-C - Last Filed: 02/28/25 20:58> Critical Care Time Critical Care Time Critical Care Time: No <Elise Bal PA-C - Last Filed: 02/28/25 20:58> Discharge Plan Discharge Clinical Impression: Vertigo <Danielle Campa MD - Last Filed: 02/28/25 18:01> Patient Disposition: Home <Danielle Campa MD - Last Filed: 02/28/25 18:01> Condition: Improved <Danielle Campa MD - Last Filed: 02/28/25 18:01> Instructions: Benign Paroxysmal Positional Vertigo (ED), Dizziness (ED) <Danielle Campa MD - Last Filed: 02/28/25 18:01> Additional Instructions: Return to the emergency department if you experience fever, chest pain, shortness of breath, abdominal pain with nausea and vomiting, weakness, numbness, or any other symptoms that are concerning to you. Rest. Remain well hydrated. [facility] Follow up with your primary care doctor <Danielle Campa MD - Last Filed: 02/28/25 18:01> Patient Language: Lithuanian <Danielle Campa MD - Last Filed: 02/28/25 18:01> Prescriptions: New meclizine 25 mg tablet 25 mg PO BID PRN (Reason: dizziness) Qty: 10 0RF No Action cholecalciferol (vitamin D3) 50 mcg (2,000 unit) capsule 50 mcg PO DAILY magnesium L-lactate 84 mg tablet extended release 84 mg PO DAILY ascorbic acid (vitamin C) 500 mg capsule PO calcium carbonate [Calcium 600] 600 mg calcium (1,500 mg) tablet 600 mg PO DAILY colestipol 1 gram tablet 1 g PO BID 30 Days Qty: 60 5RF sertraline 50 mg tablet See Rx Instructions .ROUTE .COMPLEX Qty: 90 3RF Dose Instruction: TAKE 1 TABLET BY MOUTH DAILY Rx Instructions: TAKE 1 TABLET BY MOUTH DAILY levothyroxine 50 mcg tablet 50 mcg PO DAILY Qty: 90 1RF ezetimibe 10 mg tablet See Rx Instructions .ROUTE .COMPLEX Qty: 90 1RF Dose Instruction: TAKE 1 TABLET BY MOUTH DAILY Rx Instructions: TAKE 1 TABLET BY MOUTH DAILY famotidine 20 mg tablet 20 mg PO DAILY Qty: 30 3RF ibandronate 150 mg tablet See Rx Instructions .ROUTE .COMPLEX Qty: 3 0RF Dose Instruction: TAKE 1 TABLET BY MOUTH MONTHLY Rx Instructions: TAKE 1 TABLET BY MOUTH MONTHLY <Danielle Campa MD - Last Filed: 02/28/25 18:01> Follow-up/Referrals: Baldev Gonzalez MD [Primary Care Provider, Family Practice] <Danielle Campa MD - Last Filed: 02/28/25 18:01>
[2025-02-28] MEDS: diazePAM INJ (*CRX) 10 MG/2 ML SYRINGE 5 MG IV PUSH (18:02)
== END 2025-02-28 21:13 | disposition home or self-care (01) ==
PROVIDERS: Emergency Provider Emergency Medicine; PCP Family Medicine
DX: R42 Dizziness and giddiness (principal); E55.9 Vitamin D deficiency, unspecified; D72.819 Decreased white blood cell count, unspecified; M19.042 Primary osteoarthritis, left hand; M19.041 Primary osteoarthritis, right hand; Z96.21 Cochlear implant status; Z86.16 Personal history of COVID-19; Z90.49 Acquired absence of other specified parts of digestive tract
CPT/HCPCS: 36415; 70450; 80053; 85025; 93005; 96374; 96375; 96376; 99284; A9270; J2405; J3360

== ENCOUNTER 2025-03-10 01:09 | Day surgery (SDC) | payer OTHER, SELFPAY ==
--- OUTSIDE RECORDS SUMMARY | 2017-06-06 13:27 | XMS_ITS | Continuity of Care Document ---
Author Organization [facility] Address [address] [place] [address] Phone Care Team Providers Care Watch Inspector Name Role Phone Jose Reinoso MD Unavailable [...] Providers Copied on Encounter [facility], [address] [facility] [address], [place], [address], [place] tel:[phone] [facility] No Information 7 Kemar Garcia. [address] [place], [place], [id number] . tel:[phone] OFFICE CONSULTATION [facility], [address], [place], [address], [place] tel:[phone] [facility] Left shoulder pain (chief complaint) Pain in left shoulderBursi tis of left shoulderBursi tis of right shoulderBody mass index (BMI) 21.0-21.9, adult Apr- 8-201 7 Fabian German. [address], [place], [place], [id number] . tel: [phone] Referring Provider: Baldev Loza, [address], [place], [address]. tel:[phone] Family History Family Member Type Diagnosis Age At Onset Father Problem (finding) Maternal history of ralph betes mellitus Payers Payer name Insurance type Covered libertarian ID Authoriza aj(s) Blue Access PPO E2 OT [id number] Social History Type Description Quantity Date Captured [...]
--- OUTSIDE RECORDS SUMMARY | 2025-03-10 01:13 | XMS_ITS | Clinical Summary ---
Author Organization [facility] Address [address] [place] [address] Care Team Providers Care Registered Nurse Supervisor Name Role Phone Baldev Gonzalez MD [...] Comments Blood Pressure 154/83 09/03/2018 3:00 PM SALES CONSULTANT Pulse 70 09/03/2018 3:00 PM SALES CONSULTANT Temperature 36.7 C (98 F) 09/03/2018 3:00 PM SALES CONSULTANT Respiratory Rate 18 09/03/2018 3:00 PM SALES CONSULTANT Oxygen Saturation 94% 09/03/2018 3:00 PM SALES CONSULTANT Inhaled Oxygen Concentration - - Weight 51.8 kg (114 lb 4.8 oz) 09/03/2018 3:00 P M SALES CONSULTANT Height 149.9 cm (4' 11) 09/03/2018 3:00 PM SALES CONSULTANT Body Mass Index 23.09 09/03/2018 3:00 PM SALES CONSULTANT Plan of Treatment Health Maintenance Due Date [...] (1 - 1-dose 75+ series) 2032 Insurance [employer]/TRUE BLUE PPO [employer]/TRUE BLUE PPO Care Teams Registered Nurse Supervisor Relationship Specialty Start Date End Date Baldev Gonzalez MD [address] [place] [address] PCP - General Family Practice 02/23/18
--- OUTSIDE RECORDS SUMMARY | 2025-03-10 01:13 | XMS_ITS | Clinical Summary ---
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
--- OUTSIDE RECORDS SUMMARY | 2025-03-10 01:13 | XMS_ITS | Clinical Summary ---
Author Organization [facility] Address [address] [place] [address] Care Team Providers Care Commercial Engineer Name Role Phone Rere Guerrero NP Primary Care Provider [phone] Omar Davey MD Unavailable Allergies Active Allergy Reactions Criticality Noted Date Comments Cephalexin Stomach upset Low 05/23/2022 Penicillins Hives,Itching High 02/23/2018 Sulfa (Sulfonamide Antibiotics) Hives Medium 10/07 Medications sertraline (ZOLOFT) 25 mg tabletIndications: Anxiety with Depression Take 1 tablet (25 mg total) by mouth daily before breakfast Active levothyroxine (SYNTHROID) 50 mcg tabletIndications: hypothyroidism Take 1 tablet (50 mcg total) by mouth product coordinator before breakfast 2 Active ibandronate (BONIVA) 150 [...] (08/27/2022): Added automatically from request for surgery [id number] Cholesteatoma of left ear 04/02/2022 Cholesteatoma of ear, left 04/02/2022 Conductive hearing loss, uni lateral, left ear, with unrestricted hearing on the contralateral side 04/02/2022 Left chronic otitis media 04/02/2022 Encounters Date Type Department Care Team Description 12/29/2024 Telephone [facility] Medicine Otolaryngology [address] [place] [address] Lily Saldaña MS from Last 3 Months [...] Comments Blood Pressure 138/67 06/09/2023 1:45 PM GOVERNMENT PROGRAM MANAGER Pulse 80 06/09/2023 1:50 PM GOVERNMENT PROGRAM MANAGER Temperature 36.7 C (98.1 F) 06/09/2023 1:12 PM GOVERNMENT PROGRAM MANAGER Respiratory Rate 16 06/09/2023 1:50 PM GOVERNMENT PROGRAM MANAGER Oxygen Saturation 94% 06/09/2023 1:50 PM GOVERNMENT PROGRAM MANAGER Inhaled Oxygen Concentration - - Weight 49 kg (108 lb) 06/09/2023 10:05 AM GOVERNMENT PROGRAM MANAGER Height 152.4 cm (5') 06/09/2023 10:05 AM GOVERNMENT PROGRAM MANAGER Body Mass Index 21.09 06/09/2023 10:05 AM GOVERNMENT PROGRAM MANAGER Plan of Treatment Health Maintenance Due Date [...] (#1) 2025 Medical Devices Implanted Type Area Game Author Device Identifier Shelf Expiration Date Model / Serial / Lot [employer] Porp [place] Prosthesis Ossicular 655 - [id number] Implanted:Qty: 1 on 11/18/2022 by Wesley Jason MD at [facility] Left: Ear [employer] [id number] 08/07/2027 655 / / [id number] [employer] Baha 4mm Abutment Implant Cochlear Titanium [id number] - [id number] Implanted:Qty: 1 on 06/09/2023 by Wesley Jason MD at [facility] Left: Ear [employer] 10/09/2027 [id number] / / [id number] [employer]chle[employer] Implant Cochlear [id number] - [id number] - [id number] Implanted:Qty: 1 on 06/09/2023 by Wesley Jason MD at [facility] Left: Ear [employer] 03/23/2025 [id number] / [id number] / Insurance [id number] [place] [address] [facility] Care Teams Commercial Engineer Relationship Specialty Start Date End Date Rere Guerrero NP PCP - General Nurse Practitioner 03/07/22 Omar Davey MD Referring Physician Otolaryngology 05/27/22
[2025-03-10 13:01] VITALS: BP 146/74; PULSE 69; RESP 18; TEMP 36.6; O2SAT 98
[2025-03-10] MEDS: LACTATED RINGERS 1,000 ML 150 ML IV CONT (13:13)
--- NOTE | 2025-03-10 13:26 | WPDANESEPPF ---
Anes - Initial Pre Proc Eval Procedure: Operation Date: 03/10/25 14:00 Proposed Procedures p Esophagogastroduodenoscopy EGD - Morales Mcallister MD Date/Time: 03/10/25 13:26 Surgeon: Morales Mcallister MD Pre Op Diagnosis: Unspecified abdominal pain Patient Data Age: 69 Gender: F Height: 1.55 m Weight: 49.3 kg Last Vital Signs Temp 97.8 F 03/10/25 13:01 Pulse 69 03/10/25 13:01 Resp 18 03/10/25 13:01 BP 146/74 H 03/10/25 13:01 Pulse Ox 98 03/10/25 13:01 O2 Del Method Room Air 03/10/25 13:01 Allergies Allergy/AdvReac Type Severity Reaction Status Date / Time atorvastatin Allergy Unknown Muscle pain Verified 03/10/25 12:59 Penicillins Allergy Unknown Unknown Verified 03/10/25 12:59 Sulfa (Sulfonamide Allergy Unknown Unknown Verified 03/10/25 12:59 Antibiotics) sulfanilamide Allergy Unknown unknown Verified 03/10/25 12:59 sulfur dioxide Allergy Unknown hives Verified 03/10/25 12:59 rosuvastatin (From Crestor) AdvReac Nausea, Verified 03/10/25 12:59 upset stomach Home Medications ?Medication ?Instructions ?Recorded ?Confirmed ?Type cholecalciferol (vitamin D3) 50 50 mcg PO DAILY 03/05/21 03/10/25 History mcg (2,000 unit) capsule magnesium L-lactate 84 mg 84 mg PO DAILY 03/05/21 03/10/25 History tablet,extended release ascorbic acid (vitamin C) 500 mg 500 mg PO DAILY 01/18/22 03/10/25 History capsule calcium carbonate (Calcium 600) 600 mg PO DAILY 01/18/22 03/10/25 History sertraline 50 mg tablet See Rx Instructions .Route 02/05/24 03/10/25 Rx .COMPLEX #90 tabs levothyroxine 50 mcg tablet 50 mcg PO DAILY #90 tabs 10/15/24 03/10/25 Rx ezetimibe 10 mg tablet See Rx Instructions .Route 11/08/24 03/10/25 Rx .COMPLEX #90 tabs colestipol 1 gram tablet 1 g PO BID 1 month #60 tabs 12/09/24 03/10/25 Rx ibandronate 150 mg tablet See Rx Instructions .Route 02/06/25 03/04/25 Rx .COMPLEX #3 tabs meclizine 25 mg tablet 25 mg PO BID PRN dizziness #10 tabs 02/28/25 03/04/25 Rx omeprazole 20 mg capsule,delayed 20 mg PO DAILY 03/04/25 03/10/25 History release Patient hx anesthesia problems: none Family hx anesthesia problems: none Results Review: All pre-operative results and documents have been reviewed as part of the pre-operative evaluation. [facility] Past Medical History Medical History (Updated 03/01/25 @ 00:01 by Adryan Black) Chronic diarrhea Nausea and vomiting Screening for thyroid disorder Elevated TSH Localized myalgia of masseter Left-sided face pain Edema of face BMI 21.0-21.9, adult COVID-19 BMI 20.0-20.9, adult Elevated LFTs Elevated TSH Elevated antinuclear antibody (EDI) level Elevated cholesterol Elevated fasting glucose Encounter for gynecological examination (general) (routine) without abnormal findings (09/18/15) Myalgia Polyarthralgia Primary osteoarthritis of both hands Primary osteoarthritis, left hand Routine medical exam Screening for breast cancer Screening for colon cancer Screening for diabetes mellitus Screening for lipid disorders Screening for osteoporosis Screening for thyroid disorder Vitamin D deficiency Generalized osteoarthritis of multiple sites Chronic leukopenia EDI positive Surgical History Surgical History (Updated 12/09/24 @ 11:07 by Stephanie García APN-C) History of placement of ear tubes H/O shoulder surgery H/O section Hx of cholecystectomy Family History Family History Father Diabetes mellitus Hypertension Family history of diabetes mellitus in first degree relative Grandparent Diabetes mellitus Mother Family history of osteoporosis Family history of arthritis Sibling Diabetes mellitus Social History Social History Social History: Caffeine-none Smoking status: Never smoker Second hand tobacco smoke exposure: No Alcohol intake: never Substance use: never Substance use type: does not use Do You Feel Safe in your Home?: Yes Lack of Transportation: No Lack of Food: Never True Current Housing: I Have Housing Concerned About Future Housing: No Difficulty Paying Gas/Electric Bills: No Difficulty Paying for Meds: No Currently Unemployed: No Education: High School Diploma/GED Difficulty w/ Childcare or Family Care: No Living arrangements: with family Occupation/Education: retired 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 Informed Consent: The patient's anesthetic plan and its attendant risks and benefits were discussed with the patient/family/POA. Questions were solicited and answers provided to the satisfaction of the patient/family/POA.
--- NOTE | 2025-03-10 13:39 | PM.HPGS ---
History of Present Illness History of Present Illness Consent: Risks, benefits, and alternatives have been discussed and questions answered. Patient agrees to proceed with procedure. Chief complaint: Unspecified abdominal pain Narrative: Maryellen Cruz is a 69 year old female here for egd, intermittent abd pain, ultrasound showed post cholecystectomy Review of Systems Review of Systems: All systems reviewed & are unremarkable except as noted in HPI and below PMFSH Past Medical History Medical History (Updated 03/01/25 @ 00:01 by Adryan Black) Chronic diarrhea Nausea and vomiting Screening for thyroid disorder Elevated TSH Localized myalgia of masseter Left-sided face pain Edema of face BMI 21.0-21.9, adult COVID-19 BMI 20.0-20.9, adult Elevated LFTs Elevated TSH Elevated antinuclear antibody (EDI) level Elevated cholesterol Elevated fasting glucose Encounter for gynecological examination (general) (routine) without abnormal findings (09/18/15) Myalgia Polyarthralgia Primary osteoarthritis of both hands Primary osteoarthritis, left hand Routine medical exam Screening for breast cancer Screening for colon cancer Screening for diabetes mellitus Screening for lipid disorders Screening for osteoporosis Screening for thyroid disorder Vitamin D deficiency Generalized osteoarthritis of multiple sites Chronic leukopenia EDI positive Surgical History Surgical History (Updated 12/09/24 @ 11:07 by HANK Bretrand) History of placement of ear tubes H/O shoulder surgery H/O section Hx of cholecystectomy Family History Family History Father Diabetes mellitus Hypertension Family history of diabetes mellitus in first degree relative Grandparent Diabetes mellitus Mother Family history of osteoporosis Family history of arthritis Sibling Diabetes mellitus Social History Social History Social History: Caffeine-none Smoking status: Never smoker Second hand tobacco smoke exposure: No Alcohol intake: never Substance use: never Substance use type: does not use Do You Feel Safe in your Home?: Yes Lack of Transportation: No Lack of Food: Never True Current Housing: I Have Housing Concerned About Future Housing: No Difficulty Paying Gas/Electric Bills: No Difficulty Paying for Meds: No Currently Unemployed: No Education: High School Diploma/GED Difficulty w/ Childcare or Family Care: No Living arrangements: with family Occupation/Education: retired 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 Gender identity (if verbalized by the patient): Female Spiritual care concerns: No Meds Home Medications and Allergies Home Medications ?Medication ?Instructions ?Recorded ?Confirmed ?Type cholecalciferol (vitamin D3) 50 50 mcg PO DAILY 03/05/21 03/10/25 History mcg (2,000 unit) capsule magnesium L-lactate 84 mg 84 mg PO DAILY 03/05/21 03/10/25 History tablet,extended release ascorbic acid (vitamin C) 500 mg 500 mg PO DAILY 01/18/22 03/10/25 History capsule calcium carbonate (Calcium 600) 600 mg PO DAILY 01/18/22 03/10/25 History sertraline 50 mg tablet See Rx Instructions .Route 02/05/24 03/10/25 Rx .COMPLEX #90 tabs levothyroxine 50 mcg tablet 50 mcg PO DAILY #90 tabs 10/15/24 03/10/25 Rx ezetimibe 10 mg tablet See Rx Instructions .Route 11/08/24 03/10/25 Rx .COMPLEX #90 tabs colestipol 1 gram tablet 1 g PO BID 1 month #60 tabs 12/09/24 03/10/25 Rx ibandronate 150 mg tablet See Rx Instructions .Route 02/06/25 03/04/25 Rx .COMPLEX #3 tabs meclizine 25 mg tablet 25 mg PO BID PRN dizziness #10 tabs 02/28/25 03/04/25 Rx omeprazole 20 mg capsule,delayed 20 mg PO DAILY 03/04/25 03/10/25 History release Allergies Allergy/AdvReac Type Severity Reaction Status Date / Time atorvastatin Allergy Unknown Muscle pain Verified 03/10/25 12:59 Penicillins Allergy Unknown Unknown Verified 03/10/25 12:59 Sulfa (Sulfonamide Allergy Unknown Unknown Verified 03/10/25 12:59 Antibiotics) sulfanilamide Allergy Unknown unknown Verified 03/10/25 12:59 sulfur dioxide Allergy Unknown hives Verified 03/10/25 12:59 rosuvastatin (From Crestor) AdvReac Nausea, Verified 03/10/25 12:59 upset stomach Vital Signs Vital Signs - 24 hr 03/10/25 13:01 Temperature 97.8 F Pulse Rate 69 Respiratory Rate 18 Blood Pressure 146/74 H Pulse Oximetry 98 Oxygen Delivery Room Air Exam Const: General: comfortable and no acute distress HENMT: Face/Nose/Sinus: Normal nares present Eyes: General: appearance normal, both eyes and all related structures Neck: Neck: no JVD Resp: Auscultation: clear to auscultation bilaterally Cardio: Rate: regular rate Rhythm: regular rhythm GI: Inspection: non-distended GI Palp: Yes Soft to palpation Skin: General skin exam: normal color Neuro: Speech: normal speech Extrem: General: normal to inspection Psych: Mental Status: mental status grossly normal Assessment and Plan Assessment and plan (1) Abdominal pain: Code(s): R10.9 - Unspecified abdominal pain Status: Acute Assessment and Plan: egd with bx
--- NOTE | 2025-03-10 13:45 | S_PTH ---
PATIENT: Maryellen Cruz LOC: [facility]#:[id number] AGE/SX: 69/F ROOM: RE03/10/[address]: Morales Mcallister MD : 1955 BED: DIS: 03/10/2025 SPEC #: [id number] RECD: 03/10/25 14:19 STATUS: NALLELY NOBLE #: [id number] MARYBEL: 03/10/25 13:[address]: Morales Mcallister DEPT: [facility] RECD BY: Trini Darby ENTERED: 03/10/25 14:20 SP TYPE: Surgical OTHR DR: Baldev Gonzalez MD Tissues: A - Small Bowel Bx B - Gastric Biopsy Procedures: Hematoxylin and Eosin Stain Gross and Microscopic Level 4
[2025-03-10 13:47] VITALS: BP 112/65; PULSE 73; RESP 14; O2SAT 96
[2025-03-10 13:57] VITALS: BP 115/67; PULSE 80; RESP 15; O2SAT 96
[2025-03-10 14:07] VITALS: BP 133/86; PULSE 67; RESP 16; O2SAT 98
== END 2025-03-10 14:16 | disposition home or self-care (01) ==
PROVIDERS: PCP Family Medicine; Referring Provider Nurse Practitioner Family; Visit Provider Internal Medicine Gastroenterology
PROC: 0DJ08ZZ Inspection of Upper Intestinal Tract, Via Natural or Artificial Opening Endoscopic (ICD-10-PCS; CPT 43239; principal; 2025-03-10 14:00)
DX: R10.13 Epigastric pain (principal)
CPT/HCPCS: 43239; 88305; J2003; J2704; J7120

== ENCOUNTER 2025-05-29 20:17 | Emergency (ER) | payer OTHER, SELFPAY ==
--- OUTSIDE RECORDS SUMMARY | 2017-06-06 12:27 | XMS_ITS | Continuity of Care Document ---
Author Organization [facility] Address [address] [place] [address] Phone Care Team Providers Care Wrong Address Clerk Name Role Phone Jose Reinoso MD Unavailable [...] Providers Copied on Encounter [facility], [address] [facility], [place], [address], [place] tel:[phone] [facility] No Information 7 Kemar Garcia. [address] [place], [place], [id number] . tel:[phone] OFFICE CONSULTATION [facility], [address], [place], [address], [place] tel:[phone] [facility] Left shoulder pain (chief complaint) Pain in left shoulderBursi tis of left shoulderBursi tis of right shoulderBody mass index (BMI) 21.0-21.9, adult Apr- 8-201 7 Fabian German. [address], [place], [place], [id number] . tel: [phone] Referring Provider: Baldev Loza, [address], [place], [address]. tel:[phone] Family History Family Member Type Diagnosis Age At Onset Father Problem (finding) Maternal history of ralph betes mellitus Payers Payer name Insurance type Covered libertarian ID Authoriza aj(s) Blue Access PPO E2 OT [id number] Social History Type Description Quantity Date Captured [...]
--- NOTE | ~2025-05-29 | XR_ITS ---
XR knee LT 3V 05/29/2025 21:05 Indication: Patellar fracture Procedure: 3 views left knee Comparison: No prior studies for comparison. Findings: There is a comminuted transversely oriented patellar fracture with distraction approximately 1.5 cm. Small joint effusion. Proximal tibia and fibula are intact. No femoral fracture. Impression: 1: Comminuted displaced patellar fracture. 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 Impression: 1: Comminuted displaced patellar fracture.
[2025-05-29 20:18] VITALS: BP 141/71; PULSE 81; RESP 22; TEMP 36.6; O2SAT 100
--- OUTSIDE RECORDS SUMMARY | 2025-05-29 20:19 | XMS_ITS | Clinical Summary ---
Author Organization [facility] Address [address] [place] [address] Care Team Providers Care Medical Center Representative Name Role Phone Baldev Gonzalez MD Primary Care Provider [phone] Allergies Active Allergy Reactions Criticality Noted Date [...] Comments Blood Pressure 154/83 09/03/2018 3:00 PM ANALYTIC MANAGER Pulse 70 09/03/2018 3:00 PM ANALYTIC MANAGER Temperature 36.7 C (98 F) 09/03/2018 3:00 PM ANALYTIC MANAGER Respiratory Rate 18 09/03/2018 3:00 PM ANALYTIC MANAGER Oxygen Saturation 94% 09/03/2018 3:00 PM ANALYTIC MANAGER Inhaled Oxygen Concentration - - Weight 51.8 kg (114 lb 4.8 oz) 09/03/2018 3:00 P M ANALYTIC MANAGER Height 149.9 cm (4' 11) 09/03/2018 3:00 PM ANALYTIC MANAGER Body Mass Index 23.09 09/03/2018 3:00 PM ANALYTIC MANAGER Plan of Treatment Health Maintenance Due [...] (1 - 1-dose 75+ series) 2032 Insurance [employer] BLUE [employer]/TRUE BLUE PPO BCBS BLUE ACCESS/TRUE BLUE PPO Care Teams Medical Center Representative Relationship Specialty Start Date End Date Baldev Gonzalez MD [address] [place] [address] PCP - General Family Practice 02/23/18
--- OUTSIDE RECORDS SUMMARY | 2025-05-29 20:19 | XMS_ITS | Clinical Summary ---
Author Organization [facility] Address [address] [place] [id number] Care Team Providers Care Clinical Specialist Vascular Name Role Phone Rere Guerrero NP Primary Care Provider [phone] Omar Davey MD Unavailable Allergies Active Allergy Reactions Criticality Noted Date Comments Cephalexin Stomach upset Low 05/23/2022 Penicillins Hives,Itching High 02/23/2018 Sulfa (Sulfonamide Antibiotics) Hives Medium 10/07 Medications sertraline (ZOLOFT) 25 mg tabletIndications: Anxiety with Depression Take 1 tablet (25 mg total) by mouth daily before breakfast Active levothyroxine (SYNTHROID) 50 mcg tabletIndications: hypothyroidism Take 1 tablet (50 mcg total) 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 2 Active ibandronate (BONIVA) 150 [...] (08/27/2022): Added automatically from request for surgery [id number] Cholesteatoma of left ear 04/02/2022 Cholesteatoma of ear, left 04/02/2022 Conductive hearing loss, uni lateral, left ear, with unrestricted hearing on the contralateral side 04/02/2022 Left chronic otitis media 04/02/2022 Encounters Date Type Department Care Team Description 05/03/2025 1:00 PM CDT Office Visit [facility] Medicine Otolaryngology [address] [place] [address], [address] [place] [address] Wesley Jason MD Left chronic otitis media (Primary Dx); Mixed conductive and sensorineural hearing loss of left ear with restricted hearing of right ear from Last 3 Months Surgical History Surgery [...] Comments Blood Pressure 138/67 06/09/2023 1:45 PM SERVICE NOW DEVELOPER Pulse 80 06/09/2023 1:50 PM SERVICE NOW DEVELOPER Temperature 36.7 C (98.1 F) 06/09/2023 1:12 PM SERVICE NOW DEVELOPER Respiratory Rate 16 06/09/2023 1:50 PM SERVICE NOW DEVELOPER Oxygen Saturation 94% 06/09/2023 1:50 PM SERVICE NOW DEVELOPER Inhaled Oxygen Concentration - - Weight 49 kg (108 lb) 06/09/2023 10:05 AM SERVICE NOW DEVELOPER Height 152.4 cm (5') 06/09/2023 10:05 AM SERVICE NOW DEVELOPER Body Mass Index 21.09 06/09/2023 10:05 AM SERVICE NOW DEVELOPER Plan of Treatment Health Maintenance Due Date Last Done Comments Breast Cancer Screening-Mammogram 1955 Colon Cancer Screening-Colonoscopy 1955 Depression Screening 1955 Hepatitis C Screening 1955 Osteoporosis Screening-Bone Density Scan 1955 DTaP/Tdap/Td Vaccine (1 - Tdap) 1968 Hepatitis B Screening 1975 Pneumococcal vaccine 65+ (1 of 1 - PCV) 2007 Zoster Vaccine (1 of 2) 2007 Covid-19 Vaccine (3 - Pfizer risk series) 05/19/2021 04/21/2021, 03/30/2021 Well Visit 65+ 2022 Fall Risk Assessment 06/09/2024 06/09/2023 Influenza Vaccine (#1) 2025 Medical Devices Implanted Type Area Merchandise Support Associate Device Identifier Shelf Expiration Date Model / Serial / Lot [employer] Porp Springer Prosthesis Ossicular 655 - [id number] Implanted:Qty: 1 on 11/18/2022 by Wesley Jason MD at [facility] [place] Left: Ear [employer] [id number] 08/07/2027 655 / / [id number] [employer]chle[employer] Baha 4mm Abutment Implant Cochlear Titanium [id number] - [id number] Implanted:Qty: 1 on 06/09/2023 by Wesley Jason MD at [facility] [place] Left: Ear [employer] 10/09/2027 [id number] / / [id number] [employer]chle[employer] Implant Cochlear [id number] - [id number] - [id number] Implanted:Qty: 1 on 06/09/2023 by Wesley Jason MD at [facility] [place] Left: Ear [employer] 03/23/2025 [id number] / [id number] / Insurance [facility] Care Teams Clinical Specialist Vascular Relationship Specialty Start Date End Date Rere Guerrero NP PCP - General Nurse Practitioner 03/07/22 Omar Davey MD Referring Physician Otolaryngology 05/27/22
--- OUTSIDE RECORDS SUMMARY | 2025-05-29 20:19 | XMS_ITS | Clinical Summary ---
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 Not on file Not on file Not [...] Virus (HCV) Screening 1955 TdaP Immunization 1955 Varicella Immunization (1 of 2 - 13+ 2-dose series) 1970 Cologuard 2002 Immunochemical Fecal Occult Blood 2002 Pneumococcal Immunization (5 0+ years) (1 of 1 - PCV) 2007 Zoster Immunization (1 of 2) 2007 Influenza Immunization (#1) 2025 SARS-COV-2 Immunization (1 - 2024- season) 2025 Colonoscopy 11/27/2028 11/27/2018 Colorectal Cancer [...] to complete this topic Insurance Care Teams Computer Technology Instructor Relationship Specialty Start Date End Date Baldev Gonzalez MD [address] [place], [place] [id number] PCP - General Family Medicine 10/23/18
--- NOTE | 2025-05-29 20:51 | ED_ITS ---
HPI - Fall General Chief Complaint: Fall Stated Complaint: fall, L leg injury Time Seen by Provider: 05/29/25 20:41 History of Present Illness HPI Narrative: 70-year-old female with history of hyperlipidemia, hypothyroidism, osteoporosis. Patient presents to the emergency department today after ground level mechanical fall while she tripped over her dog's or running around the house. She landed on her hardwood floor in the kitchen onto her left knee and had significant pain immediately. Presents with aching pain in her left knee and difficulty extending her lower extremity. No pain in the hip or ankle. No paresthesias or numbness in the foot. No other traumatic injuries. Denies any symptoms at rest but has significant pain in the knee when she tries to move or touch it. No previous orthopedic surgeries in the lower extremities. Has had previous surgeries in the elbow and shoulder however. Related Data Home Medications ?Medication ?Instructions ?Recorded ?Confirmed ?Last Taken ?Type cholecalciferol (vitamin D3) 50 50 mcg PO DAILY 03/14/25 03/09/25 History mcg (2,000 unit) capsule magnesium L-lactate 84 mg 84 mg PO DAILY 03/05/2102/2803/09/25 History tablet,extended release ascorbic acid (vitamin C) 500 mg 500 mg PO DAILY 01/1803/14/25 03/09/25 History capsule calcium carbonate (Calcium 600) 600 mg PO DAILY 03/14/25 03/09/25 History omeprazole 20 mg capsule,delayed 20 mg PO DAILY 03/14/25 03/09/25 History release Allergies Allergy/AdvReac Type Severity Reaction Status Date / Time atorvastatin Allergy Unknown Muscle pain Verified 05/29/25 20:18 Penicillins Allergy Unknown Unknown Verified 05/29/25 20:18 Sulfa (Sulfonamide Allergy Unknown Unknown Verified 05/29/25 20:18 Antibiotics) sulfanilamide Allergy Unknown unknown Verified 05/29/25 20:18 sulfur dioxide Allergy Unknown hives Verified 05/29/25 20:18 rosuvastatin (From Crestor) AdvReac Nausea, Verified 05/29/25 20:18 upset stomach Review of Systems 2 Review of Systems: As reviewed above in HPI [facility] Past Medical History Medical History Chronic diarrhea Nausea and vomiting Screening for thyroid disorder Elevated TSH Localized myalgia of masseter Left-sided face pain Edema of face BMI 21.0-21.9, adult COVID-19 BMI 20.0-20.9, adult Elevated LFTs Elevated TSH Elevated antinuclear antibody (EDI) level Elevated cholesterol Elevated fasting glucose Encounter for gynecological examination (general) (routine) without abnormal findings (09/18/15) Myalgia Polyarthralgia Primary osteoarthritis of both hands Primary osteoarthritis, left hand Routine medical exam Screening for breast cancer Screening for colon cancer Screening for diabetes mellitus Screening for lipid disorders Screening for osteoporosis Screening for thyroid disorder Vitamin D deficiency Generalized osteoarthritis of multiple sites Chronic leukopenia EDI positive Surgical History Surgical History History of placement of ear tubes H/O shoulder surgery H/O section Hx of cholecystectomy Family History Family History Father Diabetes mellitus Hypertension Family history of diabetes mellitus in first degree relative Grandparent Diabetes mellitus Mother Family history of osteoporosis Family history of arthritis Sibling Diabetes mellitus Social History Social History Social History: Caffeine-none Smoking status: Never smoker Second hand tobacco smoke exposure: No Alcohol intake: never Substance use: never Substance use type: does not use Do You Feel Safe in your Home?: Yes Lack of Transportation: No Lack of Food: Never True Current Housing: I Have Housing Concerned About Future Housing: No Difficulty Paying Gas/Electric Bills: No Difficulty Paying for Meds: No Currently Unemployed: No Education: High School Diploma/GED Difficulty w/ Childcare or Family Care: No Living arrangements: with family Occupation/Education: retired 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 Mucous membranes moist. NECK: Supple. CHEST: [Clear to auscultation. No respiratory distress.] HEART: [Regular rate and rhythm]. No murmur heard. [Normal peripheral pulses.] ABDOMEN: [Soft, nondistended], [nontender], [No rigidity or guarding] EXTREMITIES: Suspected patellar fraction left knee with palpable divit and stepoff between superior and inferior portion of patella with crepitus and tenderness to palpation along the anterior portion of the knee. Impaired extensor mechanism of the left lower extremity but ankle plantar and dorsiflexion and hip flexion intact. No bony deformity in the femur or ballard. 2+ dorsalis pedis pulse and warm extremity. SKIN: Warm, dry, no rash. NEURO: [No focal deficits]. Alert and oriented [x3.] PSYCH: [Normal mood and affect.] Course Vital Signs Vital signs: Vital Signs Temperature 36.6 C 05/29/25 20:18 Pulse Rate 81 05/29/25 20:18 Respiratory Rate 22 H 05/29/25 20:18 Blood Pressure 141/71 H 05/29/25 20:18 Pulse Oximetry 100 05/29/25 20:18 Oxygen Delivery Room Air 05/29/25 20:18 Temperature 36.6 C 05/29/25 20:18 Pulse Rate 79 05/29/25 23:26 Respiratory Rate 16 05/29/25 23:26 Blood Pressure 143/77 H 05/29/25 23:26 Pulse Oximetry 98 05/29/25 23:26 Oxygen Delivery Room Air 05/29/25 21:40 MDM - Fall MDM Narrative Medical decision making narrative: 70-year-old female with history of hyperlipidemia, hypothyroidism, osteoporosis. Patient presents to the emergency department today after ground level mechanical fall while she tripped over her dog's or running around the house. She landed on her hardwood floor in the kitchen onto her left knee and had significant pain immediately. Presents with aching pain in her left knee and difficulty extending her lower extremity. No pain in the hip or ankle. No paresthesias or numbness in the foot. No other traumatic injuries. Denies any symptoms at rest but has significant pain in the knee when she tries to move or touch it. No previous orthopedic surgeries in the lower extremities. Has had previous surgeries in the elbow and shoulder however. Suspected patellar fraction left knee with palpable divit and stepoff between superior and inferior portion of patella with crepitus and tenderness to palpation along the anterior portion of the knee. Impaired extensor mechanism of the left lower extremity but ankle plantar and dorsiflexion and hip flexion intact. No bony deformity in the femur or ballard. 2+ dorsalis pedis pulse and warm extremity. Patient is hemodynamically intact, neurovascularly intact. X-rays obtained to rule out other acute process but suspect patellar fracture versus less likely dislocation based on exam findings. Patient given morphine for analgesia. Will discuss with orthopedics upon imaging review. X-ray shows patellar fracture, spoke to Dr. Joshua. Will be placed in a knee immobilizer. Patient will be seen by Orthopedics tomorrow in clinic with surgery planned for Friday after discussion. Patient given pain control medications and safe for discharge home at this time. Knee immobilizer and crutches provided. Medical Records Attestation: I reviewed the patient's medical records. Lab Data Attestation: I reviewed the patient's lab results. 05/29/25 21:34 05/29/25 21:34 Labs: Lab Results 05/29/25 Range/Units 21:34 WBC 4.8 (4.5-10.0) K/mm3 RBC 4.28 (4.2-5.4) M/mm3 Hgb 13.5 (12.0-15.0) g/dL Hct 41.1 (37.0-47.0) % MCV 96.0 (80-100) fl MCH 31.5 (26-34) pg MCHC 32.8 (32-36) g/dl RDW 12.1 (11.5-14.5) % Plt Count 207 (150-375) k/mm3 MPV 8.5 (7.4-10.4) fl Immature Gran % (Auto) 0.4 (0-0.5) % Neut % (Auto) 56.3 (45.5-73.1) % Lymph % (Auto) 24.5 (18.3-44.2) % [place] % (Auto) 11.7 H (2.6-8.5) % Eos % (Auto) 6.3 H (0-4.4) % Baso % (Auto) 0.8 (0.2-1.2) % Lymph # (Auto) 1.17 (0.9-3.2) K/mm3 [place] # (Auto) 0.6 (0.1-0.6) K/mm3 Eos # (Auto) 0.3 (0-0.3) K/mm3 Baso # (Auto) 0.0 (0.0-0.1) K/mm3 Abs Immat Gran (auto) 0.02 (0.00-0.031) K/mm3 Absolute Neuts (auto) 2.7 (1.3-6.7) K/mm3 Absolute Nucleated RBC 0.000 (0.0-0.012) K/mm3 Nucleated RBC % 0.0 (0.0-0.2) % PT 11.8 (11.1-14.7) Seconds INR 0.8 APTT 25.6 (22.3-36.8) Seconds Sodium 140 (137-145) mmol/L Potassium 3.4 (3.4-5.0) mmol/L Chloride 101 (98-107) mmol/L Carbon Dioxide 31 H (22-30) mmol/L Anion Gap 8 (4-12) mmol/L BUN 14 (7-17) mg/dL Creatinine 0.84 (0.7-1.0) mg/dL Estim Creat Clear Calc Not Reportable Estimated GFR > 60 (59 - ) Glucose 101 (65-110) mg/dL Calcium 10.4 H (8.4-10.2) mg/dL Blood Type A Positive Antibody Screen Negative Imaging Data Attestation: I personally reviewed and interpreted this imaging study as follows: My impression: Patellar fracture Discharge Plan Discharge Clinical Impression: Patellar fracture Patient Disposition: Home Condition: Stable Instructions: Antibiotic Form, Patellar Fracture (ED), Knee Immobilizer (ED) Additional Instructions: You have a patellar fracture causing your symptoms and pain. We have spoken to orthopedics who will see you in clinic tomorrow and schedule you for surgery on Friday. We have sent you with pain control medications. Wear the knee immobilizer for comfort and stability for the fragments of your fracture. Use crutches and assistance for ambulation. Avoid falling or repeat injury. Return with any emergent concerns or intolerable pain otherwise follow-up with orthopedics and plan for operation Friday. Patient Language: Cambodian Prescriptions: New morphine 15 mg tablet 15 mg PO Q8H PRN (Reason: pain) Qty: 14 0RF acetaminophen [Tylenol Extra Strength] 500 mg tablet 1,000 mg PO TID PRN (Reason: pain) Qty: 30 0RF methocarbamol 750 mg tablet 750 mg PO TID PRN (Reason: pain) Qty: 20 0RF ibuprofen 600 mg tablet 600 mg PO TID PRN (Reason: pain) Qty: 20 0RF No Action cholecalciferol (vitamin D3) 50 mcg (2,000 unit) capsule 50 mcg PO DAILY magnesium L-lactate 84 mg tablet extended release 84 mg PO DAILY ascorbic acid (vitamin C) 500 mg capsule 500 mg PO DAILY calcium carbonate [Calcium 600] 600 mg calcium (1,500 mg) tablet 600 mg PO DAILY colestipol 1 gram tablet 1 g PO BID 30 Days Qty: 60 5RF meclizine 25 mg tablet 25 mg PO BID PRN (Reason: dizziness) Qty: 10 0RF omeprazole 20 mg capsule,delayed release(DR/EC) 20 mg PO DAILY sertraline 50 mg tablet See Rx Instructions .ROUTE .COMPLEX Qty: 90 3RF Dose Instruction: TAKE 1 TABLET BY MOUTH DAILY Rx Instructions: TAKE 1 TABLET BY MOUTH DAILY levothyroxine 50 mcg tablet 50 mcg PO DAILY Qty: 90 1RF ezetimibe 10 mg tablet See Rx Instructions .ROUTE .COMPLEX Qty: 90 1RF Dose Instruction: TAKE 1 TABLET BY MOUTH DAILY Rx Instructions: TAKE 1 TABLET BY MOUTH DAILY ibandronate 150 mg tablet See Rx Instructions .ROUTE .COMPLEX Qty: 3 0RF Dose Instruction: TAKE 1 TABLET BY MOUTH MONTHLY Rx Instructions: TAKE 1 TABLET BY MOUTH MONTHLY Follow-up/Referrals: Greg Joshua MD [Physician, Orthopedics] - 1 Day Referral Note: Closed patellar fracture Baldev Gonzalez MD [Primary Care Provider, Family Practice] Time of Disposition: 22:29
[2025-05-29] MEDS: MORPHINE SULFATE (*CRX) 4 MG/ML INJ 2 MG IV PUSH (21:27)
[2025-05-29 21:40] VITALS: BP 135/91; PULSE 77; RESP 12; O2SAT 95
[2025-05-29] MEDS: MORPHINE SULFATE (*CRX) 15 MG TAB IR PO (22:57)
[2025-05-29] MEDS: ACETAMINOPHEN 500 MG TABLET 1000 MG PO (22:58)
[2025-05-29 23:10] LABS: Hematocrit 41.1 % (37.0-47.0); Hemoglobin 13.5 g/dL (12.0-15.0); Immature Granulocyte Percent A 0.4 % (0-0.5); Lymphocytes Absolute Auto 1.17 K/mm3 (0.9-3.2); Mean Corpuscular HGB Conc 32.8 g/dl (32-36); Mean Corpuscular Hemoglobin 31.5 pg (26-34); Mean Corpuscular Volume 96.0 fl (80-100); Nucleated Red Blood Cells Absolute Auto 0.000 K/mm3 (0.0-0.012); Nucleated Red Blood Cells Perc 0.0 % (0.0-0.2); Platelet Count Result 207 k/mm3 (150-375); Red Blood Count 4.28 M/mm3 (4.2-5.4); White Blood Count 4.8 K/mm3 (4.5-10.0)
[2025-05-29 23:19] LABS: Anion Gap 8 mmol/L (4-12); Blood Urea Nitrogen 14 mg/dL (7-17); Calcium 10.4 mg/dL (8.4-10.2); Carbon Dioxide 31 mmol/L (22-30); Chloride 101 mmol/L (98-107); Estimated Glomerular Filt Rate > 60; Glucose 101 mg/dL (65-110); Potassium 3.4 mmol/L (3.4-5.0); Sodium 140 mmol/L (137-145)
[2025-05-29 23:26] VITALS: BP 143/77; PULSE 79; RESP 16; O2SAT 98
[2025-05-29 23:38] LABS: INR 0.8; Prothrombin Time 11.8 Seconds (11.1-14.7)
[2025-05-29 23:39] LABS: Partial Thromboplastin Time 25.6 Seconds (22.3-36.8)
== END 2025-05-29 23:29 | disposition home or self-care (01) ==
PROVIDERS: Emergency Provider Student in an Organized Health Care Education/Training Program; PCP Family Medicine
DX: S82.042A Displaced comminuted fracture of left patella, initial encounter for closed fracture (principal); E03.9 Hypothyroidism, unspecified; E78.5 Hyperlipidemia, unspecified; E55.9 Vitamin D deficiency, unspecified; M19.042 Primary osteoarthritis, left hand; M19.041 Primary osteoarthritis, right hand; M81.0 Age-related osteoporosis without current pathological fracture; D72.819 Decreased white blood cell count, unspecified; Z86.16 Personal history of COVID-19; Z90.49 Acquired absence of other specified parts of digestive tract; Z79.899 Other long term (current) drug therapy; W01.0XXA Fall on same level from slipping, tripping and stumbling without subsequent striking against object, initial encounter
CPT/HCPCS: 36415; 73562; 80048; 85025; 85610; 85730; 86850; 86900; 86901; 96374; 99284; A9270; J2270

== ENCOUNTER 2025-06-01 00:57 | Day surgery (SDC) | payer OTHER, SELFPAY ==
--- OUTSIDE RECORDS SUMMARY | 2017-06-06 12:27 | XMS_ITS | Continuity of Care Document ---
Author Organization [facility] Address [address] [place] [address] Phone Care Team Providers Care Online Community Manager Name Role Phone Jose Reinoso MD Unavailable Unavailable Allergies, Adverse Reactions, Alerts Substance Reaction Status Criticality PENICILLIN Hives Active No Information Sulfa (Sulfonamide Antibiotics) Hives Active No Information Medications Medication Instructions Dosage Effective Dates (start - stop) Status Comments meloxicam 15 mg tablet take 1 tablet (15MG) by oral route every day with food - Active sertraline 50 mg tablet take 1 tablet by oral route every day 50 MG - Active ibandronate 150 mg tablet take 1 tablet by oral route every month on the same date; Take with a full glass of water and remain in an upright position for at least 60 minutes. 150 MG - Active atorvastatin 10 mg tablet take 1 tablet by oral route every day 10 MG - Active Vitamin C 500 mg capsule,extended release - Active ginkgo biloba 120 mg tablet - Active GLUCOSAMINE-CHONDROI TIN (unknown strength) Not Available - Active CALCIUM 500-VIT D3 (unknown strength) Not Available - Active Procedures Procedure Date RADEX NICHOLAS COMPL MINIMUM 2 VIEWS 017 OFFICE CONSULTATION Advance Directives Directive Yes / No Effective Date File Name No Information Encounters Encounter Description Practice Location Reason(s) For Visit Diagnoses Date Provider Providers Copied on Encounter [facility], [address] [facility], [place], [address], [place] tel:[phone] [facility] No Information 7 Kemar Garcia. [address] [place], [place], [id number] . tel:[phone] OFFICE CONSULTATION [facility], [address], [place], [address], [place] tel:[phone] [facility] Left shoulder pain (chief complaint) Pain in left shoulderBursi tis of left shoulderBursi tis of right shoulderBody mass index (BMI) 21.0-21.9, adult Apr- 8-201 7 Fabian German. [address], [place], [place], [id number] . tel: [phone] Referring Provider: Baldev Loza, [address], [place], [address]. tel:[phone] Family History Family Member Type Diagnosis Age At Onset Father Problem (finding) Maternal history of ralph betes mellitus Payers Payer name Insurance type Covered democrat ID Authoriza aj(s) Blue Access PPO E2 OT [id number] Social History Type Description Quantity Date Captured Comments Sex Female Smoking Status No Information Chief Complaint And Reason For Visit No Information Reason For Referral Reason For Referral No Information Plan Of Treatment Date Type Action Status Referral Ordered: RADEX NICHOLAS COMPL MINIMUM 2 VIEWS LT ordered History Of Present Illness Encounter Date Complaint History Of Prese nt Illness Left shoulder pain Functional Status Date Functional Assessmen t No Information Instructions Date Instruction Additional Infor mation Take medication as directed. Rel ated to Pain in left shoulder Assessments Type Assessment Date No Information Patient Care Teams Name Effective Dates (start - stop) Status Members No Information
--- NOTE | 2025-05-31 08:48 | PC.NURSE ---
[facility] has started construction of its new state of the art ER which will open Spring 2026. With this, we anticipate parking may be a challenge for some our surgical patients and families. Parking spaces are limited but are available for all Surgical, obstetrics, and ER patients sharing this lot. If you arrive and find you are having a hard time finding a parking space, please note that we understand the challenges, please drive around the hospital and park near Hospital Entrance 1. When you enter this entrance, you can ask a volunteer to direct or take you back to the surgical waiting area to check in. We appreciate everyone?s understanding of these expected challenges while we build for your future. Report to the Outpatient Waiting Room, entrance under the green pavilion located off [address], at time __10:15 am on date _06/01/25 . Planned Procedure Time: _12:15pm .? Time changes happen often and if your time is changed the preop area will call you the afternoon before. - You and your visitor will be asked to self-screen and do not enter if you have any COVID symptoms. Please call surgeon if you need to reschedule. - A mask is optional within the hospital at this time. Patients may have clear liquids (water, carbonated beverages, clear teas, apple juice) until 3 hours prior to surgery with a maximum of 20 ounces. - No food from midnight until time of surgery and no smoking, or chewing tobacco (or any form of nicotine). No chewing gum, candy or mints. (0915am) Take only the following medications with a SIP of water on the morning of surgery: Levothyroxine, Sertraline, Tylenol if needed Methocarbanol if needed DO NOT STOP ANY OF YOUR OTHER PRESCRIPTION MEDICATIONS PRIOR TO SURGERY EXCEPT THE FOLLOWING Hold all vitamins and supplements for 3 days per anesthesiologist. Medications to discontinue per physician ____NONE Date to take last dose NONE Please no make-up, nail english, hairspray, perfume, deodorant, or body powder the day of surgery.? No jewelry (including any body piercings) or valuables the day of surgery, leave them at home.? Please take a shower or bath the night before, or the morning of, surgery with an antibacterial soap.? Wear comfortable, loose fitting clothing.? - Jewelry must be removed prior to entering the operating room.? Rings and piercings that are not removed may be cut off. - The hospital will not accept responsibility for valuables.? - Please leave all valuables, including medications, at home the day of surgery. If you are going home after surgery, a licensed miniature train driver must drive you home.? - NO public transportation without another adult if you receive anesthesia. - We recommend that an adult stay with you for 24 hours following discharge. - We also recommend that you do not drive, make important decision, drink alcoholic beverages, or take any drugs that were not prescribed by your health care provider for at least 24 hours after your discharge time. Follow any additional instructions given to you from your surgeon. Telephone instructions given to __Patient and asked if any additional questions and then verbalized understanding. Patient advised to call surgeon office or pre surgery nurse liaison [phone] if any additional questions.
[2025-06-01] VITALS (17 sets, daily range): BP systolic 120–148; BP diastolic 64–91; PULSE 81–101; RESP 12–20; TEMP 36.2–37.6; O2SAT 94–100
--- NOTE | ~2025-06-01 | XR_ITS ---
XR surgery orthopedic Indication: ORIF patellar fracture TECHNIQUE: Fluoroscopy used during ORIF patellar fracture performed by Dr. Ana Joshua MD on 06/01/2025. 60 seconds of fluoroscopy time with 2 fluoroscopic images captured. FINDINGS: Status post ORIF patellar fracture with 3 vertically oriented lag screws. Fracture fragments in anatomic alignment. Correlate procedure note. IMPRESSION: Fluoroscopy used during ORIF patellar fracture. 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
--- OUTSIDE RECORDS SUMMARY | 2025-06-01 00:59 | XMS_ITS | Clinical Summary ---
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
--- OUTSIDE RECORDS SUMMARY | 2025-06-01 00:59 | XMS_ITS | Clinical Summary ---
Author Organization [facility] Address [address] [place] [address] Care Team Providers Care Collar Packer Name Role Phone Baldev Gonzalez MD Primary Care Provider [phone] Allergies Active Allergy Reactions Criticality Noted Date [...] Comments Blood Pressure 154/83 09/03/2018 3:00 PM CHIEF CRNA Pulse 70 09/03/2018 3:00 PM CHIEF CRNA Temperature 36.7 C (98 F) 09/03/2018 3:00 PM CHIEF CRNA Respiratory Rate 18 09/03/2018 3:00 PM CHIEF CRNA Oxygen Saturation 94% 09/03/2018 3:00 PM CHIEF CRNA Inhaled Oxygen Concentration - - Weight 51.8 kg (114 lb 4.8 oz) 09/03/2018 3:00 P M CHIEF CRNA Height 149.9 cm (4' 11) 09/03/2018 3:00 PM CHIEF CRNA Body Mass Index 23.09 09/03/2018 3:00 PM CHIEF CRNA Plan of Treatment Health Maintenance Due Date [...] (1 - 1-dose 75+ series) 2032 Insurance [employer] BLUE Inflow[employer]/TRUE BLUE PPO BCBS BLUE ACCESS/TRUE BLUE PPO Care Teams Collar Packer Relationship Specialty Start Date End Date Baldev Gonzalez MD [address] [place] [address] PCP - General Family Practice 02/23/18
--- OUTSIDE RECORDS SUMMARY | 2025-06-01 00:59 | XMS_ITS | Clinical Summary ---
Author Organization [facility] Address [address] [place] [id number] Care Team Providers Care Materials Supervisor Name Role Phone Rere Guerrero NP Primary Care Provider [phone] Omar Davey MD Unavailable Allergies Active Allergy Reactions Criticality Noted Date Comments Cephalexin Stomach upset Low 05/23/2022 Penicillins Hives,Itching High 02/23/2018 Sulfa (Sulfonamide Antibiotics) Hives Medium 10/07 Medications sertraline (ZOLOFT) 25 mg tabletIndications: Anxiety with Depression Take 1 tablet (25 mg total) by mouth daily before breakfast Active levothyroxine (SYNTHROID) 50 mcg tabletIndications: hypothyroidism Take 1 tablet (50 mcg total) by mouth home economics expert before breakfast 2 Active ibandronate (BONIVA) 150 [...] (08/27/2022): Added automatically from request for surgery [id number] Cholesteatoma of left ear 04/02/2022 Cholesteatoma of ear, left 04/02/2022 Conductive hearing loss, uni lateral, left ear, with unrestricted hearing on the contralateral side 04/02/2022 Left chronic otitis media 04/02/2022 Encounters Date Type Department Care Team Description 05/03/2025 1:00 PM CDT Office Visit [facility] [facility] Medicine Otolaryngology [address] [place] [address], [address] [place] [address] Wesley Jason MD Left chronic [...] Comments Blood Pressure 138/67 06/09/2023 1:45 PM BRASS RECLAIMER Pulse 80 06/09/2023 1:50 PM BRASS RECLAIMER Temperature 36.7 C (98.1 F) 06/09/2023 1:12 PM BRASS RECLAIMER Respiratory Rate 16 06/09/2023 1:50 PM BRASS RECLAIMER Oxygen Saturation 94% 06/09/2023 1:50 PM BRASS RECLAIMER Inhaled Oxygen Concentration - - Weight 49 kg (108 lb) 06/09/2023 10:05 AM BRASS RECLAIMER Height 152.4 cm (5') 06/09/2023 10:05 AM BRASS RECLAIMER Body Mass Index 21.09 06/09/2023 10:05 AM BRASS RECLAIMER Plan of Treatment Health Maintenance Due Date [...] (#1) 2025 Medical Devices Implanted Type Area Tile Sprayer Device Identifier Shelf Expiration Date Model / Serial / Lot [employer] Porp [place] Prosthesis Ossicular 655 - [id number] Implanted:Qty: 1 on 11/18/2022 by Wesley Jason MD at [facility] [place] Left: Ear [employer] [id number] 08/07/2027 655 / / [id number] [employer] Baha 4mm Abutment Implant Cochlear Titanium [id number] - [id number] Implanted:Qty: 1 on 06/09/2023 by Wesley Jason MD at [facility] [place] Left: Ear [employer] 10/09/2027 [id number] / / [id number] [employer]chle[employer] Implant Cochlear [id number] - [id number] - [id number] Implanted:Qty: 1 on 06/09/2023 by Wesley Jason MD at [facility] [place] Left: Ear [employer] 03/23/2025 [id number] / [id number] / Insurance [facility] Care Teams Materials Supervisor Relationship Specialty Start Date End Date Rere Guerrero NP PCP - General Nurse Practitioner 03/07/22 Omar Davey MD Referring Physician Otolaryngology 05/27/22
--- NOTE | 2025-06-01 08:22 | WPDHPUPDATE1 ---
History and Physical Update Update Date/Time: 06/01/25 08:22 History and Physical has been reviewed, including an updated exam of the patient. There are NO changes in the patient's condition. Risks, benefits, and alternatives have been discussed and questions answered. Patient agrees to proceed with procedure.
[2025-06-01] MEDS: LACTATED RINGERS 1,000 ML 30 ML IV CONT ×2 (09:30→13:11)
[2025-06-01] MEDS: CELECOXIB 200 MG CAPSULE PO (09:30)
--- NOTE | 2025-06-01 09:38 | WPDANESEPPF ---
Anes - Initial Pre Proc Eval Procedure: Operation Date: 06/01/25 10:00 Proposed Procedures p Open Reduction Internal Fixation Left Patella - Greg Joshua MD Date/Time: 06/01/25 09:38 Surgeon: Greg Joshua MD Pre Op Diagnosis: Left Patella Fracture Patient Data Age: 70 Gender: F Height: 1.55 m Weight: 48 kg Allergies Allergy/AdvReac Type Severity Reaction Status Date / Time atorvastatin Allergy Unknown Muscle pain Verified 05/31/25 08:29 Penicillins Allergy Unknown Unknown Verified 05/31/25 08:29 Sulfa (Sulfonamide Allergy Unknown Unknown Verified 05/31/25 08:29 Antibiotics) sulfanilamide Allergy Unknown unknown Verified 05/31/25 08:29 sulfur dioxide Allergy Unknown hives Verified 05/31/25 08:29 rosuvastatin (From Crestor) AdvReac Nausea, Verified 05/31/25 08:29 upset stomach Home Medications ?Medication ?Instructions ?Recorded ?Confirmed ?Type cholecalciferol (vitamin D3) 50 50 mcg PO DAILY 03/05/21 05/31/25 History mcg (2,000 unit) capsule magnesium L-lactate 84 mg 84 mg PO DAILY 03/05/21 05/31/25 History tablet,extended release ascorbic acid (vitamin C) 500 mg 500 mg PO DAILY 01/18/22 05/31/25 History capsule calcium carbonate (Calcium 600) 600 mg PO DAILY 01/18/22 05/31/25 History omeprazole 20 mg capsule,delayed 20 mg PO DAILY 03/04/25 05/31/25 History release levothyroxine 50 mcg tablet 50 mcg PO DAILY #90 tabs 04/08/25 05/31/25 Rx ezetimibe 10 mg tablet See Rx Instructions .Route 05/10/25 05/31/25 Rx .COMPLEX #90 tabs ibandronate 150 mg tablet See Rx Instructions .Route 05/10/25 05/31/25 Rx .COMPLEX #3 tabs acetaminophen 500 mg tablet 1,000 mg (2 x 500 mg) PO TID PRN 05/29/25 05/31/25 Rx (Tylenol Extra Strength) pain #30 tabs ibuprofen 600 mg tablet 600 mg PO TID PRN pain #20 tabs 05/29/25 05/31/25 Rx Held on 05/31/25. Instructions: .Provider Order methocarbamol 750 mg tablet 750 mg PO TID PRN pain #20 tabs 05/29/25 05/31/25 Rx chlorhexidine gluconate 4 % 1 applic topical ONCE #237 mL 05/30/25 05/31/25 Rx topical liquid (Hibiclens) sertraline 50 mg tablet 25 mg 05/31/25 History Patient hx anesthesia problems: none Family hx anesthesia problems: none Results Review: All pre-operative results and documents have been reviewed as part of the pre-operative evaluation. [facility] Past Medical History Medical History Chronic diarrhea Nausea and vomiting Screening for thyroid disorder Elevated TSH Localized myalgia of masseter Left-sided face pain Edema of face BMI 21.0-21.9, adult COVID-19 BMI 20.0-20.9, adult Elevated LFTs Elevated TSH Elevated antinuclear antibody (EDI) level Elevated cholesterol Elevated fasting glucose Encounter for gynecological examination (general) (routine) without abnormal findings (09/18/15) Myalgia Polyarthralgia Primary osteoarthritis of both hands Primary osteoarthritis, left hand Routine medical exam Screening for breast cancer Screening for colon cancer Screening for diabetes mellitus Screening for lipid disorders Screening for osteoporosis Screening for thyroid disorder Vitamin D deficiency Generalized osteoarthritis of multiple sites Chronic leukopenia EDI positive Surgical History Surgical History History of placement of ear tubes H/O shoulder surgery H/O section Hx of cholecystectomy Family History Family History Father Diabetes mellitus Hypertension Family history of diabetes mellitus in first degree relative Grandparent Diabetes mellitus Mother Family history of osteoporosis Family history of arthritis Sibling Diabetes mellitus Social History Social History Social History: Caffeine-none Smoking status: Never smoker Second hand tobacco smoke exposure: No Alcohol intake: never Substance use: never Substance use type: does not use Lack of Transportation: No Lack of Food: Never True Current Housing: I Have Housing Concerned About Future Housing: No Difficulty Paying Gas/Electric Bills: No Difficulty Paying for Meds: No Currently Unemployed: No Education: High School Diploma/GED Difficulty w/ Childcare or Family Care: No Living arrangements: with family Occupation/Education: retired 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 Informed Consent: The patient's anesthetic plan and its attendant risks and benefits were discussed with the patient/family/POA. Questions were solicited and answers provided to the satisfaction of the patient/family/POA.
[2025-06-01] MEDS: ceFAZolin 2 GM in SODIUM CHLORIDE 0.9% IV 50 ML 100 ML IVPB ×2 (10:15→17:36)
[2025-06-01] MEDS: fentaNYL CITRATE INJ (*CRX) 100 MCG/2 ML VIAL 25 MCG IV PUSH ×8 (13:23→13:53)
--- NOTE | 2025-06-01 13:34 | W.PM.PROC2 ---
Procedure Note - Detailed Date of Procedure 06/01/25 Pre-op Diagnosis Left Patella Fracture Post-op Diagnosis Same Procedure Performed ORIF LEFT PATELLA Surgeon Greg Joshua MD Anesthesia General Description of Procedure THE PATIENT WAS TAKEN TO THE OPERATING ROOM INTUBATED AND AND PLACED UNDER GENERAL ANESTHESIA. THE RIGHT LEG WAS PREPPED IN THE STERILE FASHION. THE INCISION WAS MADE OVER THE MIDLINE AREA OF THE KNEE DOWN TO THE FASCIA LAYER. THE FRACTURE WAS HIGHLY COMMINUTED. A SMALL ARTHROTOMY WAS MADE AND A LARGE FRACTURE HEMATOMA WAS EVACUATED FROM THE KNEE JOINT. THE FRACTURE WAS REDUCED TO NEAR ANATOMIC POSITION. K WIRES WERE USED TO SECURE THE FRAGMENTS TOGETHER. 2 SMALL FRAGMENT CANNULATED SCREWS WERE PLACED THROUGH THE MAIN FRACTURE FRAGMENTS., A 3RD SCREW WAS PLACED THROUGH A SEPARATE FRAGMENT AND SECURED TO THE MAIN DISTAL FRAGMENT. THE FRACTURE WAS STABLE. PALPATION OF THE UNDERSURFACE OF THE PATELLA WAS PREFORMED TO ENSURE NEAR ANATOMIC POSITION. NEXT A 2MM ARTHREX FIBER TAPE WAS USED TO PREFORM A FIGURE 8 TYPE WEAVE THROUGH THE SCREW HOLES OF BOTH MAIN FRAGMENTS PROXIMALLY AND DISTALLY. THE FIBER TAPE WAS TIED DOWN TO MULTIPLE KNOTS. THE KNEE WAS TAKEN THROUGH A RANGE OF MOTION AND THE FRACTURE WAS STABLE. XRAYS WERE TAKEN WELL. THE HARDWARE AND FRACTURE FRAGMENTS WERE IN ANATOMIC POSITION. THE WOUND WAS IRRIGATED WITH COPIOUS AMOUNTS OF SALINE SOLUTION. THE ARTHROTOMY WAS REPAIRED WITH #1 VICRYL, THE SUBCUTANEOUS LAYER WITH 2-0 VICRYL AND THE SKIN WITH RADHA. THE WOUND WAS WASHED AND PLACE IN A STERILE DRESSING. THE PATIENT WAS EXTUBATED. Estimated Blood Loss 50 Drains No Packing No Pathology None sent Complications No immediate complications Condition Stable Disposition PACU
[2025-06-01] MEDS: KETOROLAC 30 MG/ML VIAL (*BKC) IV PUSH (13:44)
[2025-06-01] MEDS: HYDROmorphone HCL INJ (*CRX) 1 MG/ML SYR IV PUSH ×3 (13:53→14:29)
--- NOTE | 2025-06-01 14:45 | SUR.PHASEI ---
1440: Dr. Joseph with anesthesia and Jeremy Landa with anesthesia at bedside to perform Left leg nerve block.
--- NOTE | 2025-06-01 15:22 | WPDANESPNB ---
Anes - Peripheral Nerve Block Date/Time: 06/01/25 15:22 I have discussed with the patient/family/POA the placement of a peripheral nerve block for post-operative pain management, including associated risks, benefits, complications, and side effects. Alternative methods of post-operative analgesia were detailed. Questions were solicited and answers provided to the satisfaction of the patient/family/POA. Time-Out: A pre-procedural Time-Out was completed immediately before starting the procedure and confirmed: Patient Identification, Site, Procedure, Patient Position and the Availability of Requisite Equipment. Clinical Indications: Acute post-operative pain management requested by the operative surgeon. Nerve Block Insertion Note Anes-nerve block: femoral left Patient position: supine Skin prep: chlorhexidine Needle: 22 gauge, stimulating, insulated echogenic needle. Needle length: 50 mm Technique: nerve stimulation lost at (mA) (0.5) Injectate: bupivacaine 0.5% with epi 5 mcg/ml (30cc no epi) Observations: tolerated well Complications: none Procedure start time:: 1440 Procedure end time:: 1445
--- NOTE | 2025-06-01 17:12 | ADMGEN ---
This patient, Maryellen Cruz, was admitted to [facility] Surg Room 324-02. Patient/family oriented to hospital policies and general routines including ID bracelet, bed and alarms, visiting hours, pain management, procedures, bathroom and other care routines, personal items, smoking policy, room service/diet, and visiting hours. Information on how to activate the Rapid Response Team has been discussed. Patient/Family are encouraged to report perceived risks to care and to ask questions if they do not understand what they are told or what they should do.
[2025-06-01] MEDS: KETOROLAC 15 MG/ML VIAL (*BKC) IM (17:35)
[2025-06-01] MEDS: ASPIRIN 81 MG ENTERIC TABLET PO (20:27)
[2025-06-01] MEDS: HYDROcodone/acetaminophen (*CRX) 5-325 MG TABLET 1 TAB PO (23:23)
[2025-06-02 00:31] VITALS: BP 121/71; PULSE 82; RESP 18; TEMP 37.2; O2SAT 98
[2025-06-02] MEDS: ceFAZolin 2 GM in SODIUM CHLORIDE 0.9% IV 50 ML 100 ML IVPB ×2 (01:06→09:20)
[2025-06-02] MEDS: HYDROcodone/acetaminophen (*CRX) 5-325 MG TABLET 1 TAB PO (05:48)
[2025-06-02 05:51] VITALS: BP 121/68; PULSE 84; RESP 18; TEMP 37.1; O2SAT 96
[2025-06-02] MEDS: ACETAMINOPHEN 325 MG TABLET 650 MG PO (09:20)
[2025-06-02] MEDS: ASPIRIN 81 MG ENTERIC TABLET PO (09:20)
[2025-06-02 10:02] VITALS: BP 114/56; PULSE 87; RESP 16; TEMP 36.6; O2SAT 97
--- NOTE | 2025-06-02 11:45 | P.DS_ITS ---
DS: Admitting Diagnosis Discharge Date 06/02/2025 Admitting Diagnosis left patella fracture DS: Discharge Diagnosis Discharge Diagnosis Plan left patella fracture. Knee immobilizer. Weight bear as tolerated left leg with the immobilizer. Keep immobilizer on except for hygiene and dressing change. may remove incision dressing in 6 days and replace with silver dressing. May shower. Re wrapped Costa as needed DS: Summary Hospital Course Reason for hospitalization: left patella fracture Hospital Course: 70-year-old woman admitted for surgery with open reduction internal fixation left patella fracture. Postoperatively with pain requiring IV medication. Admitted for observation. Pain improved. Tolerating diet, voiding appropriately. Able to mobilize. alert and orient x3. Exam benign. Ready for discharge Home with family. Status at Discharge Cognitive/behavioral status at discharge: Alert and oriented x3 Functional status at discharge: uses cane/walker Overall status at discharge: patient is not back to baseline ( patella fracture with immobilizer) Time Spent with Patient Time attestation: Total time spent providing and/or coordinating discharge services: Exam Const: General: comfortable; No acute distress Resp: Effort & Inspection: normal respiratory effort and no audible wheezes Extrem: Right lower extremity: lower leg ( Negative Homans sign), ankle Details: normal ROM ( dorsiflexion and plantar flexion intact) and foot Details: vascular exam Details: dorsalis pedis pulse present and normal capillary refill, tendon exam Details: active flexion normal and active extension normal and m otor-sensory exam Details: light-touch normal Location: in all toes; no edema Left lower extremity: normal to inspection, knee ( dressing in place. Negative Homans sign), ankle Details: normal ROM and foot Details: vascular exam Details: dorsalis pedis pulse present and normal capillary refill and motor-sensory exam light-touch normal in all toes; no edema Discharge Plan Discharge Patient Disposition: Home Discharge Instructions: GREG JOSHUA M.D. [facility] [address] [facility] [address] [place] [address] POST OPERATIVE DISCHARGE INSTRUCTIONS FOLLOWING KNEE SURGERY Following your procedure, it is important that you read, understand, and carry out the following instructions. * The knee is wrapped with a dressing and Costa Bandage. If the bandage becomes uncomfortable or tight, you may remove it and rewrap it. Occasionally the dressing will soak through in the first 24 hours then stop and the drainage dries. This is not of concern. However, if the drainage is very large and persists longer than 24 hours, contact the surgeon. * keep your dressing on for 1 week then change it with the dressing that was given to you at your time of discharge and keep it on till your appointment with your surgeon. * Elevate the leg and foot for approximately 3 days. The foot should be at least 6 inches above the hips. * Ice the knee frequently for 20 minute intervals 3-4 times each day, particularly the first 3 days. * KEEP THE COSTA BANDAGE ON YOUR KNEE UNTIL YOU ARE READY TO SHOWER. YOU MAY SHOWER WITH YOUR BANDAGE WHICH IS WATERPROOF HOWEVER DO NOT GET INTO A TUB OR IMMERSE THE KNEE IN ANY WATER. KEEP YOUR KNEE STRAIGHT WHEN YOU ARE NOT USING THE KNEE IMMOBILIZER. * Use a walker for ambulation. you may place your foot down for balance. * you should stay in the knee immobilizer at all times aside from bathing * Diet as tolerated. * Continue home medications as prescribed. You can resume your anti- inflammatory medication or take an [id number] non-steroidal anti- inflammatory medication, such as Advil, for the first month following surgery. If you take Advil, you can take 2 tablets every 8 hours. If this pain medicine does not provide adequate relief, please call your surgeon. * Do not drive or operate machinery for 24 hours due to the medication received. * Your follow-up appointment is in 2 weeks. Please call office to confirm * For problems during office hours call the above office number. When the office is closed, call the office and an emergency number will be given to you. Patient Language: Greek Stand Alone Forms: General Discharge Instructions Follow-up/Referrals: Greg Joshua MD [Physician, Orthopedics] Discharge Medications: New oxycodone-acetaminophen [Percocet] 5-325 mg tablet 1 tablet PO Q6H PRN (Reason: pain) 40 Days Qty: 40 0RF Continued cholecalciferol (vitamin D3) 50 mcg (2,000 unit) capsule 50 mcg PO DAILY magnesium L-lactate 84 mg tablet extended release 84 mg PO DAILY chlorhexidine gluconate [Hibiclens] 4 % liquid 1 applic topical ONCE Qty: 237 0RF Rx Instructions: Cleanse operative extremity, in shower, every day for 1 week prior to surgical procedure. ascorbic acid (vitamin C) 500 mg capsule 500 mg PO DAILY calcium carbonate [Calcium 600] 600 mg calcium (1,500 mg) tablet 600 mg PO DAILY acetaminophen [Tylenol Extra Strength] 500 mg tablet 1,000 mg PO TID PRN (Reason: pain) Qty: 30 0RF methocarbamol 750 mg tablet 750 mg PO TID PRN (Reason: pain) Qty: 20 0RF ibuprofen 600 mg tablet 600 mg PO TID PRN (Reason: pain) Qty: 20 0RF sertraline 50 mg tablet 25 mg PO Q24H Patient Comments: Pt taking 1/2 tablet daily omeprazole 20 mg capsule,delayed release(DR/EC) 20 mg PO DAILY levothyroxine 50 mcg tablet 50 mcg PO DAILY Qty: 90 1RF ezetimibe 10 mg tablet See Rx Instructions .ROUTE .COMPLEX Qty: 90 1RF Dose Instruction: TAKE 1 TABLET BY MOUTH DAILY Rx Instructions: TAKE 1 TABLET BY MOUTH DAILY ibandronate 150 mg tablet See Rx Instructions .ROUTE .COMPLEX Qty: 3 0RF Dose Instruction: TAKE 1 TABLET BY MOUTH MONTHLY Rx Instructions: TAKE 1 TABLET BY MOUTH MONTHLY Quality VTE Prophylaxis VTE prophylaxis: mechanical ordered If No VTE Prophylaxis Answer both mechanical and pharmacologic: Reason no mechanical VTE proph: low risk/not indicated
== END 2025-06-02 12:50 | disposition home or self-care (01) ==
LOC: ANHSURGERY 14:01 → ANH3MEDSUR 16:58
PROVIDERS: PCP Family Medicine; Visit Provider Orthopaedic Surgery
PROC: (CPT 27524; principal; 2025-06-01 10:00)
DX: S82.042A Displaced comminuted fracture of left patella, initial encounter for closed fracture (principal); G89.18 Other acute postprocedural pain; W19.XXXA Unspecified fall, initial encounter; K52.9 Noninfective gastroenteritis and colitis, unspecified; E78.00 Pure hypercholesterolemia, unspecified; E55.9 Vitamin D deficiency, unspecified; D72.819 Decreased white blood cell count, unspecified; M15.0 Primary generalized (osteo)arthritis; Z79.83 Long term (current) use of bisphosphonates; Z79.891 Long term (current) use of opiate analgesic; Z79.1 Long term (current) use of non-steroidal anti-inflammatories (NSAID); Z98.890 Other specified postprocedural states; Z90.49 Acquired absence of other specified parts of digestive tract
CPT/HCPCS: 64447; 27524; 99199; J0690; A9270; J1100; J1171; J1885; J2003; J2371; J2405; J2704; J3010; J7120